=== PATIENT | female | born 1960 | race Caucasian/White ===

== ENCOUNTER → 2017-09-15 09:29 | Outpatient (CLI) | payer BC, SELFPAY ==
[2017-09-16 10:47] LABS: DHEA Sulfate 72.4 ug/dL (29.4-220.5)
== END ==
PROVIDERS: Visit Provider Obstetrics & Gynecology
DX: N95.1 Menopausal and female climacteric states (principal)
CPT/HCPCS: 36415; 82533; 82627; 82626

== ENCOUNTER → 2017-09-16 09:46 | Outpatient (CLI) | payer BC, SELFPAY ==
--- NOTE | 2017-09-16 09:52 | RAD_ITS ---
STUDY: X-RAY - ABDOMEN/PELVIS REASON FOR EXAM: Female, 57 years old. Right-sided abdominal pain TECHNIQUE: 2 views COMPARISON: None. FINDINGS: There is no bowel distention or free intraperitoneal peritoneal air. There is a moderate degree of fecal stasis. Clips in the right upper quadrant indicate prior cholecystectomy. There is a mild lumbar scoliosis with convexity to the left. No abnormal calcifications are seen over the expected locations of the kidneys. RAD/Abdomen Single View IMPRESSION: Mild fecal stasis. Nothing acute Electronically Signed: Matthew Bowman, at 10:25 EST Tel , Service support ,
== END ==
PROVIDERS: Family Provider Family Medicine; PCP Family Medicine; Visit Provider Physician Assistant Surgical
DX: R10.9 Unspecified abdominal pain (principal)
CPT/HCPCS: 74018

== ENCOUNTER 2017-09-17 11:21 | Emergency (ER) | payer BC, SELFPAY ==
[2017-09-17 11:22] VITALS: BP 108/77; PULSE 81; RESP 18; TEMP 36.6; O2SAT 100; BMI 24.8
--- NOTE | 2017-09-17 11:50 | CT_ITS ---
STUDY: CT ABDOMEN AND PELVIS WITHOUT CONTRAST REASON FOR EXAM: Female, 57 years old. Right upper quadrant pain RADIATION DOSAGE (If Supplied By Facility): CTDIvol = ( 7.65 ) mGy, DLP = ( 355.38 ) mGycm TECHNIQUE: Transaxial images were obtained from the dome of the diaphragm to the symphysis pubis without oral contrast, and without intravenous contrast. Sagittal and coronal images were reconstructed. Individualized dose optimization techniques were used for this CT. COMPARISON: None. FINDINGS: The lung bases are clear. The liver is normal with no dilated intrahepatic biliary radicles. Prior cholecystectomy.. The spleen, pancreas and both adrenals are normal. There is a tiny 2.7 mm nonobstructing right calyceal calculus. No hydronephrosis on either side. The stomach is normal. There is no bowel distention, acute appendicitis or diverticulitis. No abnormally constricting large bowel lesions. The abdominal wall is intact. There is no ascites, free intraperitoneal air or any evidence of epiploic appendagitis. The vascular structures in the retroperitoneum are normal Degenerative changes at L5-S1. There is no retrocrural, retroperitoneal or mesenteric adenopathy. There is no mesenteric mistiness The urinary bladder is normal.. The uterus is normal. There is no inguinal or pelvic adenopathy and there is no inguinal hernia.. CT/Abdomen/Pelvis without Cont IMPRESSION: A 3 mm nonobstructing right calyceal calculus. No hydronephrosis on either side No acute appendicitis or diverticulitis. Electronically Signed: Matthew Bowman, at 13:28 EST Tel , Service support ,
[2017-09-17 12:39] LABS: Bacteria 0 SEEN /hpf (None Seen); Mucous, Urine 0 SEEN /hpf (<or=2+); Red Blood Cells-Urine 0 SEEN /hpf (0-5); Squamous Epithelial Cells - UA 0 SEEN /hpf (5-10); White Blood Cells 0 SEEN /hpf (0-5)
[2017-09-17 12:44] LABS: Absolute Lymphocyte Count 1.39 X10^3/ul (0.83-4.51); Basophil# 0.04 X10^3/uL; Basophil% 0.5 % (0-1); Hematocrit 42.8 % (37-47); Hemoglobin 14.8 g/dl (12.0-15.0); Lymphocyte # 1.39 X10^3/ul (4.0); Lymphocyte % 18.6 % (19-41); Mean Corp Hgb Conc 34.6 g/gl (32-36); Mean Corpuscular Hgb 29.7 pg (27.0-32.0); Mean Corpuscular Volume 85.8 fL (81-99); Monocyte# 0.79 X10^3/uL; Monocyte% 10.5 % (0-10); Neutrophil # 4.95 X10^3/uL (2.7-7.7); Neutrophil % 66.1 % (47-70); POSITIVE COUNT NO; POSITIVE DIFFERENTIAL NO; POSITIVE MORPHOLOGY NO; Platelet Count 299 K/mm3 (150-450); RBC Distribution Width SD 39.8 fl (35.1-43.9); Red Blood Count 4.99 M/mm3 (4.2-5.4); White Blood Count 7.5 K/mm3 (4.4-11.0)
[2017-09-17 12:47] LABS: Color, Urine Yellow (Yellow); Glucose, Dipstick Normal (Normal); Ketone-Dipstick Negative (Negative); Leukocyte Esterase-Dipstick Negative /ul (Negative); Nitrite-Dipstick Negative (Negative); Occult Blood-Urine Negative /ul (Negative); Protein-Dipstick Negative (Negative); Urine Bilirubin Dipstick Negative (Negative); Urine Clarity Clear (Clear); Urine Urobilinogen Normal (Normal)
[2017-09-17 12:59] LABS: ALB/GLOB Ratio 0.9 RATIO (0.9-2.4); AST(SGOT) 13 U/L (15-37); Alanine Aminotransfer ALT/SGPT 33 U/L (13-56); Albumin, Serum 3.5 g/dL (3.2-5.0); Alkaline Phosphatase 88 U/L (45-117); Anion Gap 8 (5-15); BUN 14 mg/dL (7-18); BUN/Creat Ratio 22.4 RATIO (10-20); Calcium,Total 8.3 mg/dL (8.5-10.1); Chloride 107 mmol/L (98-107); Creatinine, Serum 0.63 mg/dL (0.55-1.02); EST Glomerular Filtration Rate 104 mL/min (>60); Est Glom Filt Rate - Afr Amer 126 mL/min (>60); Estimated Creatinine Clearance 100.58 ml/min; Globulin 3.7 g/dL (2.2-4.2); Glucose 94 mg/dL (74-106); Lipase 114 U/L (73-393); Protein, Total 7.2 g/dL (6.4-8.2); Sodium Level 142 mmol/L (136-145)
[2017-09-17 13:35] VITALS: BP 137/69; PULSE 71; RESP 16; O2SAT 96
--- NOTE | 2017-09-17 13:49 | ED.DCSUM_ITS ---
- ER Visit Summary Date of Service: 09/17/17 Chief Complaint: Abdominal pain History of Present Illness: The patient is a 57 F who presents with abdominal pain. It is been present for about 3 days. She initially attributed this to constipation. Her pain is worse in the right upper quadrant and is sharp and cramping. It is worse with movement palpation or bearing down. She took Dulcolax and had some hard stools and then did a fleets enema with positive results. She then went to the walk-in clinic yesterday and had an x-ray which she said showed significant constipation. She has 2 more enemas with relief. However she has ongoing right upper quadrant abdominal pain so presented here. No vomiting. No fevers. She has had a prior cholecystectomy no other abdominal surgeries. Physical Examination: Afebrile vitals are stable Moist mucous membranes Heart regular rate and rhythm Lungs are clear to auscultation Abdomen soft nontender to palpation nondistended Test Results: CBC CMP lipase urinalysis all normal. CT the abdomen shows no acute findings. Emergency Department Course and Treatment: Has benign physical examination and normal vital signs. She has normal laboratory studies and a normal CT. She does not appear to have any surgical or life-threatening process. She was advised to follow-up with her primary care physician. All questions answered bedside. Patient does have a history of irritable bowel syndrome and was advised to use her Bentyl at home. She was discharged. Treatment Plan: [] Disposition: Discharge Impression: Abdominal pain This note was generated with [employer] dictation software. It may contain incorrect words, spelling, and punctuation that were not noted in review of the chart prior to signing ED Disposition - Plan for ED Patient: Chief Complaint: Constipation Referrals: Noelle Sandoval MD [Primary Care Provider] -
--- NOTE | 2017-09-17 13:49 | DCINST.ED_ITS ---
ED Disposition - Plan for ED Patient: Chief Complaint: Constipation Instructions: ED Abdominal Pain Unkn Cause Referrals: Noelle aSndoval MD [Primary Care Provider] -
--- NOTE | 2017-09-17 13:49 | ED.DEP ---
ED Disposition - Plan for ED Patient: Chief Complaint: Constipation Instructions: ED Abdominal Pain Unkn Cause Referrals: Noelle Sandoval MD [Primary Care Provider] -
[2017-09-17 14:11] VITALS: BP 123/82; PULSE 74; RESP 18
== END 2017-09-17 14:13 | disposition home or self-care (01) ==
LOC: ED 13:24
PROVIDERS: Emergency Provider Emergency Medicine; Family Provider Family Medicine; PCP Family Medicine
DX: R10.11 Right upper quadrant pain (principal); K59.00 Constipation, unspecified; K58.9 Irritable bowel syndrome, unspecified; M79.7 Fibromyalgia; K21.9 Gastro-esophageal reflux disease without esophagitis; Z79.899 Other long term (current) drug therapy; Z90.49 Acquired absence of other specified parts of digestive tract
CPT/HCPCS: 74176; 80053; 81001; 83690; 85025; 99283; A4216

== ENCOUNTER → 2017-10-27 15:35 | Outpatient (CLI) | payer BC, SELFPAY ==
[2017-10-29 08:39] LABS: DHEA Sulfate 64.2 ug/dL (29.4-220.5)
== END ==
PROVIDERS: Family Provider Family Medicine; PCP Family Medicine; Visit Provider Family Medicine
DX: E04.1 Nontoxic single thyroid nodule (principal)
CPT/HCPCS: 36415; 82533; 82627; 82626

== ENCOUNTER → 2018-09-12 15:33 | Outpatient (CLI) | payer BC, SELFPAY ==
[2018-07-11 12:58] VITALS: BMI 25.0
== END ==
PROVIDERS: Family Provider Family Medicine; PCP Family Medicine; Referring Provider Otolaryngology Otolaryngology/Facial Plastic Surgery; Visit Provider Otolaryngology Otolaryngology/Facial Plastic Surgery
DX: J32.9 Chronic sinusitis, unspecified (principal); H66.91 Otitis media, unspecified, right ear
CPT/HCPCS: 87070; 87077; 87205

== ENCOUNTER → 2018-09-27 13:53 | Outpatient (CLI) | payer BC, SELFPAY ==
[2018-07-11 12:58] VITALS: BMI 25.0
[2018-10-02 08:19] LABS: HPV Reflexed? NOT INDICATED
== END ==
PROVIDERS: Family Provider Family Medicine; PCP Family Medicine; Visit Provider Obstetrics & Gynecology
DX: Z12.4 Encounter for screening for malignant neoplasm of cervix (principal)
CPT/HCPCS: 88175; G0145

== ENCOUNTER → 2018-10-11 08:56 | Outpatient (CLI) | payer BC, SELFPAY ==
[2018-07-11 12:58] VITALS: BMI 25.0
[2018-10-11 11:22] LABS: Progesterone Level 0.12 ng/mL (See Comment)
[2018-10-11 11:27] LABS: Estradiol < 11.0 pg/mL; Free T3 2.9 pg/mL (2.18-3.98); Hemoglobin A1c 5.8 % (4.2-6.3); T4 Free Direct 0.92 ng/dL (0.76-1.46); Thyroid Stim Hormone (TSH) 1.03 uIU/mL (0.358-3.74)
[2018-10-12 12:39] LABS: DHEA Sulfate 63.8 ug/dL (29.4-220.5)
== END ==
PROVIDERS: Visit Provider Obstetrics & Gynecology
DX: N95.1 Menopausal and female climacteric states (principal); R68.82 Decreased libido
CPT/HCPCS: 36415; 82533; 82627; 82670; 83036; 84144; 84403; 84439; 84443; 84481; 82626

== ENCOUNTER → 2018-11-01 15:20 | Outpatient (CLI) | payer BC, SELFPAY ==
[2018-07-11 12:58] VITALS: BMI 25.0
--- NOTE | 2018-11-01 15:21 | BI_ITS ---
MAMMOGRAPHY - BILATERAL SCREENING REASON FOR EXAM: Female, 58 years old. Routine annual screening examination. PERTINENT HISTORY: Non-contributory. Remote left stereotactic breast biopsy. TECHNIQUE: Digital bilateral breast deyanira (3D mammographic acquisition) in the CC and MLO projections. 2-D mediolateral oblique (MLO) and craniocaudad (CC) views of both breasts were obtained. CAD: Full Field Digital Mammography with Computer Added Detection was performed. COMPARISON: Comparison is made with prior study date August 11, 2017 and September 10, 2010. FINDINGS: Breast Composition: There are scattered areas of fibroglandular density. There are no dominant masses or suspicious calcifications. A tissue clip marker is seen in a small nodule in the upper deep midportion of the left breast. The nodule now measures 5.9 mm x 5.5 mm. No other significant abnormalities are identified. There has been no significant change since the prior study. BI/SCREENING MAMM (CAD), BILAT IMPRESSION: Stable bilateral screening mammogram. Yearly follow-up mammogram recommended. (A) ASSESSMENT CATEGORY: BIRADS Category 2: Benign. A letter regarding these results will be sent to the patient by the facility within 30 days. Approximately 10% of breast cancers are not detected by mammography. A normal mammogram should not delay biopsy of a clinically suspicious abnormality. [id number] Electronically Signed: Patrice Glass, at 8:34 EDT , Service support ,
== END ==
PROVIDERS: Family Provider Family Medicine; PCP Family Medicine; Referring Provider Obstetrics & Gynecology; Visit Provider Obstetrics & Gynecology
DX: Z12.31 Encounter for screening mammogram for malignant neoplasm of breast (principal)
CPT/HCPCS: 77063; 77067

== ENCOUNTER → 2019-04-12 15:50 | Outpatient (CLI) | payer BC, SELFPAY ==
[2018-07-11 12:58] VITALS: BMI 25.0
--- NOTE | 2019-04-12 15:54 | RAD_ITS ---
STUDY: X-RAY CHEST REASON FOR EXAM: Female, 59 years old. Cough for one week. TECHNIQUE: PICC line COMPARISON: None. FINDINGS: The lungs are clear and expanded. There is no demonstrated pleural abnormality. Normal size heart. Normal mediastinum and felix. Normal visualized pulmonary arteries. Normal visualized aortic arch and descending thoracic aorta. There are diffuse degenerative changes of the visualized thoracic spine. Normal visualized ribs, clavicles, and shoulders. There is no demonstrated abnormality of the visualized soft tissue structures of the upper abdomen. RAD/Chest PA and Lateral IMPRESSION: No acute cardiopulmonary disease. Electronically Signed: Luis Cummings DO at 18:37 EDT Tel [phone], Service support ,
== END ==
PROVIDERS: Family Provider Family Medicine; PCP Family Medicine; Referring Provider Family Medicine; Visit Provider Family Medicine
DX: R05 Cough (principal)
CPT/HCPCS: 71046

== ENCOUNTER → 2019-04-24 15:34 | Outpatient (CLI) | payer BC, SELFPAY ==
[2018-07-11 12:58] VITALS: BMI 25.0
== END ==
PROVIDERS: Family Provider Family Medicine; PCP Family Medicine; Referring Provider Otolaryngology; Visit Provider Otolaryngology
DX: J32.9 Chronic sinusitis, unspecified (principal)
CPT/HCPCS: 87070; 87205

== ENCOUNTER → 2021-01-01 15:03 | Outpatient (CLI) | payer BC, SELFPAY ==
[2019-09-05 08:43] VITALS: BMI 25.0
--- NOTE | 2021-01-01 15:04 | BI_ITS ---
MAMMOGRAPHY - BILATERAL SCREENING REASON FOR EXAM: Female, 60 years old. Routine annual screening examination. PERTINENT HISTORY: Non-contributory. Remote left stereotactic breast biopsy. TECHNIQUE: Digital bilateral breast josé manuel (3D mammographic acquisition) in the CC and MLO projections. 2-D mediolateral oblique (MLO) and craniocaudad (CC) views of both breasts were obtained. CAD: Full Field Digital Mammography with Computer Added Detection was performed. COMPARISON: Comparison is made with prior study dated 11/01/2018 and 08/11/2017. FINDINGS: Breast Composition: There are scattered areas of fibroglandular density. There are no dominant masses or suspicious calcifications. A tissue clip marker is once again seen in the small nodular density in the upper deep midportion of the left breast. This is unchanged. No other significant abnormalities are identified. There has been no significant change since the prior study. BI/SCRN MAMM (CAD)W/JOSÉ MANUEL BILAT IMPRESSION: Stable bilateral screening mammogram. Yearly follow-up mammogram recommended. (A) ASSESSMENT CATEGORY: BIRADS Category 2: Benign. A letter regarding these results will be sent to the patient by the facility within 30 days. Approximately 10% of breast cancers are not detected by mammography. A normal mammogram should not delay biopsy of a clinically suspicious abnormality. [id number] Electronically Signed: Patrice Glass MD at 8:25 EDT , Service support ,
== END ==
PROVIDERS: PCP Family Medicine; Referring Provider Family Medicine; Visit Provider Family Medicine
DX: Z00.00 Encounter for general adult medical examination without abnormal findings (principal); Z12.31 Encounter for screening mammogram for malignant neoplasm of breast
CPT/HCPCS: 77063; 77067

== ENCOUNTER → 2021-05-26 | Outpatient (CLI) | payer BC, SELFPAY | END | disposition home or self-care (01) | PROVIDERS: PCP Family Medicine; Referring Provider Family Medicine; Visit Provider Family Medicine | DX: J06.9 Acute upper respiratory infection, unspecified (principal) | CPT/HCPCS: 87635; U0005; U0003 ==

== ENCOUNTER 2021-08-13 10:08 | Outpatient (CLI) | payer BC, SELFPAY ==
[2021-08-13 12:39] LABS: Absolute Lymphocyte Count 1.77 X10^3/uL (0.83-4.51); Absolute Neutrophil Count 3.3 X10^3/uL (2.0-7.7); Basophil# 0.05 X10^3/uL; Basophil% 0.8 % (0-1); Eosinophil# 0.42 X10^3/uL; Eosinophils% 6.7 % (0-5); Hematocrit 44.1 % (37-47); Hemoglobin 14.2 g/dL (12.0-15.0); Lymphocyte # 1.77 X10^3/ul (0.83-4.51); Lymphocyte % 28.4 % (19-41); Mean Corp Hgb Conc 32.2 g/dL (32-36); Mean Corpuscular Hgb 28.3 pg (27.0-32.0); Mean Corpuscular Volume 87.8 fL (81-99); Mean Platelet Vol. 9.2 fl (6.2-12.0); Monocyte# 0.64 X10^3/uL; Monocyte% 10.3 % (0-10); NRBC Flagged by Analyzer 0 % (0-5); Neutrophil # 3.33 X10^3/uL (2.7-7.7); Neutrophil % 53.5 % (47-70); Platelet Count 332 K/mm3 (150-450); RBC Distribution Width CV 12.7 % (11.6-14.6); Red Blood Count 5.02 M/mm3 (4.2-5.4); White Blood Count 6.2 K/mm3 (4.4-11.0)
[2021-08-13 13:24] LABS: ALB/GLOB Ratio 1.1 RATIO (0.9-2.4); AST(SGOT) 19 U/L (15-37); Alanine Aminotransfer ALT/SGPT 50 U/L (13-56); Albumin, Serum 3.6 g/dL (3.2-5.0); Alkaline Phosphatase 85 U/L (45-117); Anion Gap 7 (5-15); BUN 14 mg/dL (7-18); BUN/Creat Ratio 23.1 RATIO (10-20); Calcium,Total 8.9 mg/dL (8.5-10.1); Chloride 109 mmol/L (98-107); EST Glomerular Filtration Rate 107 mL/min (>60); Est Glom Filt Rate - Afr Amer 130 mL/min (>60); Globulin 3.2 g/dL (2.2-4.2); Glucose 69 mg/dL (74-106); Potassium 4.4 mmol/L (3.5-5.1); Protein, Total 6.8 g/dL (6.4-8.2); Sodium Level 142 mmol/L (136-145)
== END 2021-08-13 23:59 | disposition short-term general hospital (02) ==
LOC: MFPLAB 10:11
PROVIDERS: PCP Family Medicine; Referring Provider Family Medicine; Visit Provider Family Medicine
DX: R53.83 Other fatigue (principal)
CPT/HCPCS: 36415; 80053; 85025

== ENCOUNTER 2021-10-20 18:02 | Outpatient (CLI) | payer BC, SELFPAY | END 2021-10-20 23:59 | disposition home or self-care (01) | PROVIDERS: PCP Family Medicine; Visit Provider Nurse Practitioner Family | DX: R30.0 Dysuria (principal) | CPT/HCPCS: 87086; 87088; 87186 ==

== ENCOUNTER 2021-11-10 15:41 | Outpatient (CLI) | payer BC, SELFPAY ==
[2021-11-10 17:44] LABS: Absolute Lymphocyte Count 2.07 X10^3/uL (0.83-4.51); Absolute Neutrophil Count 3.5 X10^3/uL (2.0-7.7); Basophil# 0.05 X10^3/uL; Basophil% 0.8 % (0-1); Eosinophil# 0.33 X10^3/uL; Hematocrit 43.9 % (37-47); Hemoglobin 14.3 g/dL (12.0-15.0); Lymphocyte # 2.07 X10^3/ul (0.83-4.51); Lymphocyte % 31.2 % (19-41); Mean Corp Hgb Conc 32.6 g/dL (32-36); Mean Corpuscular Hgb 28.7 pg (27.0-32.0); Mean Corpuscular Volume 88.2 fL (81-99); Mean Platelet Vol. 8.9 fl (6.2-12.0); Monocyte# 0.67 X10^3/uL; Monocyte% 10.1 % (0-10); NRBC Flagged by Analyzer 0 % (0-5); Neutrophil # 3.48 X10^3/uL (2.7-7.7); Neutrophil % 52.4 % (47-70); Platelet Count 359 K/mm3 (150-450); RBC Distribution Width CV 12.3 % (11.6-14.6); Red Blood Count 4.98 M/mm3 (4.2-5.4); White Blood Count 6.6 K/mm3 (4.4-11.0)
[2021-11-10 18:11] LABS: Erythrocyte Sedimentation Rate 8 mm/hr (0-30)
[2021-11-10 18:13] LABS: T4 Total, Thyroxin 7.9 ug/dL (4.8-13.9); Thyroid Stim Hormone (TSH) 1.08 uIU/mL (0.358-3.74)
== END 2021-11-10 23:59 | disposition home or self-care (01) ==
LOC: MFPLAB 15:42
PROVIDERS: PCP Family Medicine; Referring Provider Family Medicine; Visit Provider Family Medicine
DX: E03.9 Hypothyroidism, unspecified (principal); R55 Syncope and collapse
CPT/HCPCS: 36415; 84436; 84443; 85025; 85652

== ENCOUNTER → 2022-07-19 | Outpatient (CLI) | payer BC, SELFPAY ==
[2022-07-19 07:17] LABS: Absolute Lymphocyte Count 2.35 X10^3/uL (0.83-4.51); Absolute Neutrophil Count 3.3 X10^3/uL (2.0-7.7); Basophil# 0.06 X10^3/uL; Basophil% 0.9 % (0-1); Eosinophil# 0.58 X10^3/uL; Eosinophils% 8.4 % (0-5); Hematocrit 46.5 % (37-47); Lymphocyte # 2.35 X10^3/ul (0.83-4.51); Mean Corp Hgb Conc 32.3 g/dL (32-36); Mean Corpuscular Hgb 28.7 pg (27.0-32.0); Mean Corpuscular Volume 89.1 fL (81-99); Mean Platelet Vol. 8.8 fl (6.2-12.0); Monocyte# 0.64 X10^3/uL; Monocyte% 9.3 % (0-10); NRBC Flagged by Analyzer 0 % (0-5); Neutrophil # 3.25 X10^3/uL (2.7-7.7); Platelet Count 355 K/mm3 (150-450); RBC Distribution Width CV 12.5 % (11.6-14.6); Red Blood Count 5.22 M/mm3 (4.2-5.4); White Blood Count 6.9 K/mm3 (4.4-11.0)
[2022-07-19 07:48] LABS: ALB/GLOB Ratio 1.1 RATIO (0.9-2.4); AST(SGOT) 12 U/L (15-37); Alanine Aminotransfer ALT/SGPT 35 U/L (13-56); Albumin, Serum 3.9 g/dL (3.2-5.0); Alkaline Phosphatase 78 U/L (45-117); Anion Gap 3 (5-15); BUN 13 mg/dL (7-18); Calcium,Total 8.9 mg/dL (8.5-10.1); Chloride 109 mmol/L (98-107); Creatinine, Serum 0.69 mg/dL (0.55-1.02); EST Glomerular Filtration Rate 92 mL/min (>60); Est Glom Filt Rate - Afr Amer 112 mL/min (>60); Globulin 3.6 g/dL (2.2-4.2); Glucose 108 mg/dL (74-106); Protein, Total 7.5 g/dL (6.4-8.2); Sodium Level 142 mmol/L (136-145)
[2022-07-19 07:53] LABS: Cholesterol 221 mg/dL (200); High Density Lipoprotein 51 mg/dL; Triglycerides 114 mg/dL; Very Low Density Lipoprotein 23 mg/dL (5-40)
== END | disposition home or self-care (01) ==
LOC: LAB 06:43
PROVIDERS: PCP Family Medicine; Referring Provider Nurse Practitioner Family; Visit Provider Nurse Practitioner Family
DX: R53.83 Other fatigue (principal); Z13.220 Encounter for screening for lipoid disorders
CPT/HCPCS: 36415; 80053; 80061; 85025

== ENCOUNTER → 2022-08-09 | Outpatient (CLI) | payer BC, SELFPAY ==
[2022-08-09 19:24] LABS: Follicle Stimulating Hormone 64.4 mIU/mL; Free T3 2.9 pg/mL (2.18-3.98); Luteinizing Hormone 28.7 mIU/mL; Thyroid Stim Hormone (TSH) 1.19 uIU/mL (0.358-3.74)
== END | disposition home or self-care (01) ==
LOC: MFPLAB 15:37
PROVIDERS: PCP Family Medicine; Referring Provider Family Medicine; Visit Provider Family Medicine
DX: R55 Syncope and collapse (principal)
CPT/HCPCS: 36415; 83001; 83002; 84443; 84481

== ENCOUNTER → 2022-09-15 | Outpatient (CLI) | payer BC, SELFPAY ==
--- NOTE | 2022-09-15 | TOBX_PTH ---
PATIENT: DENIZ DUTTON LOC: [facility] U#:[id number] AGE/SX: 62/F ROOM: RE09/15/[address]: Dr. Og Morrison MD : 1960 BED: DIS: 09/15/2022 SPEC #: [id number] RECD: 09/16/22 08:10 STATUS: FREDI REJuan C #: [id number] MARLIN: 09/15/22 00:[address]: Og Morrison DEPT: SURGICAL PATHOLOGY RECD BY: Esperanza Tomlin ENTERED: 09/16/22 08:11 SP TYPE: TONGUE BX OTHR DR: Dr. Noelle Sandoval MD Tissues: Tongue, NOS Procedures: Surgery Specimen Level IV HEADER OPERATION: Not noted PRE-OP DIAGNOSIS: Tongue lesion TISSUE SUBMITTED: Tongue lesion MICROSCOPIC DIAGNOSIS Tongue lesion, biopsy: A piece of squamous mucosa with mild chronic inflammation. Negative for malignancy. SJ:ming 09/19/2022 COMMENT The epithelium is denuded in most of the specimen. Clinical correlation and appropriate follow up are necessary. Case has been reviewed in consultation with Dr. Duenas who concurs with the above diagnosis. IDC:AM MICROSCOPIC DESCRIPTION Slides are reviewed. GROSS DESCRIPTION Received in fixative is one container labeled with the patient's name and designated tongue biopsy. The specimen consists of a single irregular fragment of pink-gonzalez soft tissue measuring 0.7 x 0.3 x 0.1 cm. The specimen is totally submitted in one cassette. / AM:ming 09/16/2022 TC:3 CPT: 71102 ADDENDUM ADDENDUM ADDENDUM ADDENDUM ADDENDUM ADDENDUM ADDENDUM ADDENDUM ADDENDUM ADDENDUM 03/13/2023 09:54 ADDENDUM 03/13/2023 09:54 ADDENDUM 03/13/2023 09:54 ADDENDUM 03/13/2023 09:54 ADDENDUM 03/13/2023 09:54 This addendum is added to incorporate an outside pathology consultation report. The case was examined at [facility] (#[id number]) and the following diagnosis was rendered. Tongue lesion, biopsy: Low-grade keratinizing squamous dysplasia. Please see complete above mentioned consultation report in EMR
== END | disposition home or self-care (01) ==
LOC: LABSPEC 15:19
PROVIDERS: PCP Family Medicine; Referring Provider Otolaryngology; Visit Provider Otolaryngology
DX: K13.70 Unspecified lesions of oral mucosa (principal)
CPT/HCPCS: 88305

== ENCOUNTER → 2022-11-04 | Outpatient (CLI) | payer BC, SELFPAY ==
[2022-11-07 13:07] LABS: SJOGREN'S Anti-SS-A test < 0.2 AI (0.0-0.9)
[2022-11-08 11:13] LABS: SJOGREN'S Anti-SS-B test < 0.2 AI (0.0-0.9)
== END | disposition home or self-care (01) ==
LOC: LAB 14:20
PROVIDERS: PCP Family Medicine; Visit Provider Otolaryngology
DX: R68.2 Dry mouth, unspecified (principal)
CPT/HCPCS: 36415; 86235

== ENCOUNTER → 2022-12-21 | Outpatient (CLI) | payer BC, SELFPAY ==
--- NOTE | 2022-12-21 14:58 | CT_ITS ---
STUDY: CT SOFT TISSUE NECK WITH CONTRAST REASON FOR EXAM: Female, 62 years old. Swelling. RADIATION DOSAGE (If Supplied By Facility): CTDIvol = ( 17.66 ) mGy, DLP = ( 586.79 ) mGycm TECHNIQUE: The patient was scanned in a multi-detector CT scanner. High resolution transaxial imaging was performed following intravenous administration of IV 75mL Isovue-370. Sagittal and coronal images were reconstructed. Individualized dose optimization techniques were used for this CT. COMPARISON: CTA of the neck, March 23, 2016. FINDINGS: Normal bilateral parotid glands. Normal bilateral coke drawer spaces. Normal bilateral parapharyngeal spaces. Normal bilateral carotid spaces. Normal bilateral sublingual and submandibular glands and spaces. Normal visualized nasopharynx. Normal retropharyngeal space. Normal perivertebral space. Normal visualized bilateral faucial tonsils. The visualized tongue, tongue base and oropharynx are normal. The visualized cervical lymph nodes (levels I-) are within normal size limits, and maintain normal morphology. There is no demonstrated solid or cystic mass lesion. There is no abnormal contrast enhancement. Normal epiglottis, bilateral vallecula and hypopharynx. The pre-epiglottic and paraglottic adipose spaces are normal. Normal visualized bilateral piriform sinuses, aryepiglottic folds, vocal cords, and arytenoid-cricoid articulations. Normal subglottic trachea. Absent left thyroid. Question prior resection. There is a small hypodensity in the lower right thyroid. Normal visualized pulmonary apices. Opacification of left maxillary sinus. Degenerative changes cervical spine. There is anterior fusion of C3-C5. CT/Soft Tissue Neck WITH Contrast IMPRESSION: 1. No visualized soft tissue swelling or mass. 2. Status post left thyroidectomy. 3. Anterior fusion of the upper cervical spine. 4. Opacification of the right maxillary sinus. Question chronic sinus disease. Electronically Signed: Luis Cummings DO at 23:16 EDT ,
[2022-12-21 15:15] LABS: CREATININE FINGERSTICK < 0.9 mg/dL (0.55-1.02); EGFR FINGERSTICK > 60.0000 mL/min (>60)
== END | disposition home or self-care (01) ==
LOC: CT 14:47
PROVIDERS: PCP Family Medicine; Referring Provider Otolaryngology; Visit Provider Otolaryngology
DX: K11.23 Chronic sialoadenitis (principal); D10.1 Benign neoplasm of tongue
CPT/HCPCS: 70491; Q9967

== ENCOUNTER → 2022-12-25 | Outpatient (CLI) | payer BC, SELFPAY ==
[2022-12-26 10:05] LABS: Mucous, Urine 0 SEEN /hpf (<or=2+); Squamous Epithelial Cells - UA 0 SEEN /hpf (5-10)
[2022-12-26 10:15] LABS: Color, Urine Yellow (Yellow); Glucose, Dipstick Normal (Normal); Ketone-Dipstick 5 mg/dl (Negative); Leukocyte Esterase-Dipstick 500 /ul (Negative); Nitrite-Dipstick Negative (Negative); Occult Blood-Urine 50 /ul (Negative); Protein-Dipstick 30 mg/dl (Negative); Specific Gravity, Urine 1.025 (1.002-1.030); Urine Bilirubin Dipstick Negative (Negative); Urine Clarity Clear (Clear); Urine Urobilinogen Normal (Normal)
[2022-12-26 10:57] LABS: Calcium Oxalate Crystals Ur RARE /hpf (<or=2+); Red Blood Cells-Urine 0-5 SEEN /hpf (0-5); White Blood Cells 50-100 SEEN /hpf (0-5)
[2022-12-26 10:58] LABS: Bacteria RARE /hpf (None Seen)
== END | disposition home or self-care (01) ==
PROVIDERS: PCP Family Medicine; Visit Provider Nurse Practitioner Family
DX: R30.9 Painful micturition, unspecified (principal)
CPT/HCPCS: 81001; 87086; 87088

== ENCOUNTER → 2023-03-22 | Outpatient (CLI) | payer BC, SELFPAY ==
--- NOTE | 2023-03-22 16:22 | RAD_ITS ---
INDICATION: PRE-OP EXAMINATION/TECHNIQUE: X-RAY - XR Chest 2 Views COMPARISON: 04/12/2019 FINDINGS: LINES/DEVICES: None. LUNGS: No consolidation, edema or effusion. No pneumothorax. MEDIASTINUM AND CARDIOVASCULAR STRUCTURES: Cardiac silhouette not enlarged. Central airways and mediastinal contour are unremarkable. BONES AND SOFT TISSUES: Unremarkable. RAD/Chest PA and Lateral IMPRESSION: No radiographic evidence of acute cardiopulmonary disease. Electronically Signed: Willie Blankenship MD at 23:32 EDT ,
[2023-03-22 17:47] LABS: Absolute Neutrophil Count 3.2 X10^3/uL (2.0-7.7); Basophil# 0.06 X10^3/uL; Basophil% 0.8 % (0-1); Eosinophil# 0.43 X10^3/uL; Hemoglobin 14.6 g/dL (12.0-15.0); Lymphocyte % 37.7 % (19-41); Mean Corp Hgb Conc 31.7 g/dL (32-36); Mean Corpuscular Hgb 28.5 pg (27.0-32.0); Mean Corpuscular Volume 89.8 fL (81-99); Mean Platelet Vol. 8.9 fl (6.2-12.0); Monocyte# 0.72 X10^3/uL; NRBC Flagged by Analyzer 0 % (0-5); Neutrophil # 3.23 X10^3/uL (2.7-7.7); Neutrophil % 45.1 % (47-70); Platelet Count 368 K/mm3 (150-450); RBC Distribution Width CV 12.5 % (11.6-14.6); RBC Distribution Width SD 41.2 fl (35.1-43.9); Red Blood Count 5.12 M/mm3 (4.2-5.4); White Blood Count 7.2 K/mm3 (4.4-11.0)
[2023-03-22 18:01] LABS: AST(SGOT) 15 U/L (15-37); Alanine Aminotransfer ALT/SGPT 46 U/L (13-56); Albumin, Serum 3.8 g/dL (3.2-5.0); Alkaline Phosphatase 100 U/L (45-117); Anion Gap 6 (5-15); BUN 17 mg/dL (7-18); BUN/Creat Ratio 23.6 RATIO (10-20); Calcium,Total 8.8 mg/dL (8.5-10.1); Chloride 106 mmol/L (98-107); Creatinine, Serum 0.72 mg/dL (0.55-1.02); EST Glomerular Filtration Rate 87 mL/min (>60); Est Glom Filt Rate - Afr Amer 105 mL/min (>60); Globulin 3.8 g/dL (2.2-4.2); Glucose 110 mg/dL (74-106); Protein, Total 7.6 g/dL (6.4-8.2); Sodium Level 137 mmol/L (136-145); Troponin-I HS 4 pg/mL (3.0-54.0)
== END | disposition home or self-care (01) ==
PROVIDERS: PCP Family Medicine; Referring Provider Family Medicine; Visit Provider Family Medicine
DX: Z01.818 Encounter for other preprocedural examination (principal); R94.31 Abnormal electrocardiogram [ECG] [EKG]
CPT/HCPCS: 36415; 71046; 80053; 84484; 85025

== ENCOUNTER 2023-04-02 11:47 | Emergency (ER) | payer BC, SELFPAY ==
[2023-04-02 11:48] VITALS: BP 102/87; PULSE 103; RESP 17; TEMP 36.4; O2SAT 96; BMI 26.7
--- NOTE | 2023-04-02 12:06 | CT_ITS ---
We are attempting to reach an attending provider to discuss findings. An addendum with communication details will be sent when the communication is complete. INDICATION: Swelling, trismus EXAMINATION: CT NECK WITH CONTRAST - CT Soft Tissue Neck W/ Contrast Injection TECHNIQUE: Helically acquired images were obtained of the neck following IV contrast. RADIATION DOSAGE (If Supplied By Facility): CTDIvol = ( 17.05 ) mGy, DLP = ( 536.77 ) mGycm IV Contrast dosage and agent: 75 mL of Isovue-370. COMPARISON: CT neck with contrast 12/21/2022. FINDINGS: NASOPHARYNX: Unremarkable. SUPRAHYOID NECK: Unremarkable oropharynx, oral cavity, parapharyngeal space, and retropharyngeal space. INFRAHYOID NECK: Abnormal edema in the posterior aspect of the right false vocal cord extending laterally to wrap around the right thyroid lamina. This also extends into the preepiglottic space. This is causing narrowing of the laryngopharyngeal airway. Normal arytenoid cartilages and cricoid cartilage. No suspicious abnormality of the vocal cords. 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 Small hypodense nodules and/or cysts in the right thyroid lobe. SALIVARY GLANDS: Radiopaque catheter in the right submandibular duct with abnormal dilatation in the posterior aspect of the right submandibular duct extending to the hilum of the right submandibular gland. Radiopaque catheter inside the left subareolar duct but no obstructive dilatation of the left submandibular duct in the left submandibular gland. Normal and symmetrical parotid glands. LYMPH NODES: No cervical or supraclavicular lymphadenopathy. VASCULAR STRUCTURES: Unremarkable. VISUALIZED PORTIONS OF THE ORBITS, PARANASAL SINUSES, MASTOID AIR CELLS AND SKULL BASE: Complete opacification of the left maxillary sinus with old fracture deformity in addition to presence of mini plates and transfixing 6 screws in the anterior jones of both maxilla. Normal remaining paranasal sinuses. Normal orbits, mastoid air cells and skull base. BONES: Metallic plate with transfixing screws across from previous anterior fusion of C3, C4 and C5. Minimal degenerative anterolisthesis of C5 on C6. Pronounced C6-C7 disc space height narrowing with mild endplate sclerosis. THORACIC INLET: Clear lung apices. CT/Soft Tissue Neck WITH Contrast IMPRESSION: 1. Radiopaque drain catheter inside the right submandibular duct with obstructive dilatation in the posterior right subareolar duct extending to the hilum of the right submandibular gland. This is causing edema around the right submandibular gland consistent with sialoadenitis. This abnormal edema extends caudally into the right paralaryngeal space and the right false vocal cord. These are new findings. 2. Radiopaque drain catheter in the left submandibular duct without submandibular duct obstruction and normal left submandibular gland. This is a new finding. 3. Small hypodense nodules in the right thyroid lobe were present previously. 4. No other additional findings and changes. Electronically Signed: Quan Garzon MD at 13:33 EDT ,
[2023-04-02 12:07] VITALS: O2SAT 96
--- NOTE | 2023-04-02 12:08 | EX.ED.DYSGE1 ---
HPI History of Present Illness Chief Complaint: Shortness of Breath Narrative Narrative: 63-year-old female past medical history of recent stenting of her submandibular gland on the right at [facility] 2 days ago presents with her daughter because of increased swelling and difficulty swallowing that she has had over the last 24 hours. She is having difficulty speaking and opening her mouth. Her daughter states that she had the procedure done on Monday, 2 days ago, spent the night and came home from the hospital yesterday. She was told by the surgeon that she should be able to eat anything. She was placed on Vicodin and Augmentin, but is having difficulty swallowing pills. She has always had problems with overproduction of mucus, but is unable to swallow any Mucinex. They called her surgeon at [facility] and were told to report to the emergency department because of difficulty opening her mouth, as she can only open it up to an inch, and she has increased swelling of her right submandibular gland and neck. She denies any fevers or chills. No other symptoms. [facility] Medical History Arthritis Difficulty balancing history of neck fusion NECK AND BACK PAIN UNEXPLANINED BRUISES Home Medications cyclobenzaprine 10 mg tablet 10 mg PO TID PRN Pain 05/26/13 [History Last Taken 05/26/13 0700] multivitamin with folic acid 400 mcg tablet 1 tab PO DAILY 06/03/13 [History Last Taken Unknown] lactobacillus combination no.8 3 billion cell capsule (Adult Probiotic) 3,000 mmu cells PO DAILY 09/05/19 [History Last Taken Unknown] phenazopyridine 100 mg tablet (Pyridium) 100 mg PO TID PRN pain #14 tabs 12/25/22 [Rx Last Taken Unknown] Allergy/AdvReac Type Severity Reaction Status Date / Time benzocaine Allergy Unknown Verified 04/02/23 12:07 paroxetine HCl [From Paxil] Allergy Unknown Verified 04/02/23 12:07 TOPICAL JAIMIE Allergy Rash Uncoded 01/17/23 13:17 Surgical History History of carpal tunnel surgery History of cholecystectomy History of shoulder surgery Social History Smoking Status: Never smoker alcohol intake: current alcohol intake frequency: holidays/special occasions only ROS ROS ED ROS Narrative Constitutional: No fever, no chills. HEENT: No sore throat. No neck pain. No loss of vision. No rhinorrhea. Swelling of right cheek and neck. Difficulty swallowing. Positive trismus. Cardiovascular: No chest pain. No palpitations. No pedal edema. Mucous congestion. Respiratory: No cough, no shortness of breath. Abdominal: No abdominal pain. No nausea. No vomiting. Genitourinary: No dysuria. No hematuria. Musculoskeletal: No myalgias. No arthralgias. Neurologic: No headaches. No dizziness. No lightheadedness. Skin: No rash. No change in color. Psychiatric: No depression. No anxiety. EXAM Physical Exam Narrative Exam Narrative: Afebrile. Vital signs noted. HEENT: Normocephalic. Atraumatic. PERRL, EOMI. Neck soft and supple. No point tenderness or step off. Positive trismus. Difficulty opening mouth. Positive swelling and tenderness with erythema right submandibular gland extending to skin on anterior portion of neck and chest. Cardiovascular: Regular rate and rhythm. No murmurs, rubs, or gallops appreciated. Respiratory: No tachypnea. Lungs clear to auscultation bilaterally. Gastrointestinal: Abdomen soft, nontender, with normoactive bowel sounds. No rebound or guarding. Neurological: Awake. Alert. Nonfocal, nonlateralizing. Skin: No rash. Normal color. No pallor. Musculoskeletal: No pedal edema. Full range of motion extremities. Const Vital Signs: 04/02/23 11:48 04/02/23 12:07 04/02/23 12:54 Temperature 97.5 F L Temperature Source Temporal Pulse Rate 103 H 100 Respiratory Rate 17 18 Respiratory Effort Normal Non-Labored Respiratory Depth Normal Respiratory Pattern Normal Blood Pressure 102/87 H 151/76 H Blood Pressure Mean 92 101 Pulse Ox 96 94 Oxygen Delivery Method Room Air Room Air Room Air 04/02/23 14:09 Temperature Temperature Source Pulse Rate 92 Respiratory Rate 18 Respiratory Effort Respiratory Depth Respiratory Pattern Blood Pressure 152/84 H Blood Pressure Mean 106 Pulse Ox 97 Oxygen Delivery Method Room Air MDM MDM MDM Narrative Medical decision making narrative: In the differential diagnosis is postoperative swelling versus abscess development. Her pulse ox is 96% on room air. As she is tachycardic, I will obtain a CBC and lactate. She is having difficulty swallowing her pain pills, and requested something for swelling. Initially she will be given Toradol. I do feel that CT imaging is indicated. Currently, there are no signs of airway compromise. In discussion with the patient, she states that she does have an ENT here, who referred her to Dr. Kahlil Cheng at [facility]. She states that the stents were placed and are submandibular glands because she was not producing any saliva and that they were dried up. I reviewed her laboratory work from today and she has elevated white count of 12.7, hemoglobin normal at 14.7, hematocrit 44.8, platelet count 318. BMP is grossly unremarkable except for creatinine of 0.54, slightly low. Chloride is also elevated at 108 which I think is nonspecific. No evidence of dehydration. She was bolused normal saline 1 L intravenously. After Toradol she thinks that she can open her mouth slightly. I received a call from the radiologist regarding the CT of the soft tissue neck. He notes that there are new stents placed from CT in December, but the right stent is blocked causing dilation of the submandibular gland and swelling. Repeat examination does show that the patient is feeling slightly improved. As she was supposed to be on Augmentin with any concern for infection with elevated white count, she was given 1 g of Rocephin intravenously. I discussed the patient with the [facility] transfer line for transfer back to their facility. She has been accepted as an ED to ED transfer to be seen by otolaryngology on arrival. I do feel that she can be transferred by private vehicle and that her IV can be left in place. They were told to report directly to the [facility] ED for further evaluation and treatment. Patient is in stable condition. Disposition is transferred. History & Record Review Discussion w/independent historian: Patient and Family Lab Data Attestation: I reviewed the patient's lab results. Labs: Laboratory Results - last 24 hr 04/02/23 12:26 WBC 12.7 H RBC 5.05 Hgb 14.7 Hct 44.8 MCV 88.7 MCH 29.1 MCHC 32.8 RDW Std Deviation 41.4 RDW Coeff of Daina 12.7 Plt Count 318 MPV 8.6 Immature Gran % (Auto) 0.300 Neut % (Auto) 80.2 H Lymph % (Auto) 10.8 L [place] % (Auto) 8.2 Eos % (Auto) 0.3 Baso % (Auto) 0.2 Absolute Neuts (auto) 10.2 H Absolute Lymphs (auto) 1.38 Nucleated RBC % 0 Sodium 139 Potassium 3.6 Chloride 108 H Carbon Dioxide 25.0 Anion Gap 6 BUN 7 Creatinine 0.54 L Estim Creat Clear Calc 108.97 Est GFR (MDRD) Af Amer 148 Est GFR (MDRD) Non-Af 123 BUN/Creatinine Ratio 13.1 Glucose 113 H Lactic Acid 0.8 Calcium 8.6 Total Bilirubin 0.50 AST 38 H ALT 85 H Alkaline Phosphatase 106 Total Protein 7.1 Albumin 3.7 Globulin 3.4 Albumin/Globulin Ratio 1.1 Radiography Diagnostic Testing: Clinical Impression(s) from Imaging Studies Soft Tissue Neck CT 04/02/23 12:06 IMPRESSION: 1. Radiopaque drain catheter inside the right submandibular duct with obstructive dilatation in the posterior right subareolar duct extending to the hilum of the right submandibular gland. This is causing edema around the right submandibular gland consistent with sialoadenitis. This abnormal edema extends caudally into the right paralaryngeal space and the right false vocal cord. These are new findings. 2. Radiopaque drain catheter in the left submandibular duct without submandibular duct obstruction and normal left submandibular gland. This is a new finding. 3. Small hypodense nodules in the right thyroid lobe were present previously. 4. No other additional findings and changes. Electronically Signed: Quan Garzon MD at 13:33 EDT Reading Location ID and State: [facility] / [place] , Service support , ADDENDUM: 04/02/23 1440 IMPRESSION: 1. Radiopaque drain catheter inside the right submandibular duct with obstructive dilatation in the posterior right subareolar duct extending to the hilum of the right submandibular gland. This is causing edema around the right submandibular gland consistent with sialoadenitis. This abnormal edema extends caudally into the right paralaryngeal space and the right false vocal cord. These are new findings. 2. Radiopaque drain catheter in the left submandibular duct without submandibular duct obstruction and normal left submandibular gland. This is a new finding. 3. Small hypodense nodules in the right thyroid lobe were present previously. 4. No other additional findings and changes. N.B. : The above Results were Read Back by Quan Garzon MD to Mele Glass MD, and understanding confirmed on 04/02/2023 13:38:09 (ET). Electronically Signed: Quan Garzon MD at 13:33 EDT , Discharge Plan Triage Chief Complaint: Shortness of Breath ED Provider: Quan Shabazz Dx/Rx/DC Orders Clinical Impression: Submandibular gland swelling, Post-operative pain, Sialoadenitis of submandibular gland, Trismus Prescriptions: No Action Adult Probiotic 3 billion cell capsule 3,000 mmu cells PO DAILY Rx Instructions: administer with a meal phenazopyridine [Pyridium] 100 mg tablet 100 mg PO TID PRN (Reason: pain) Qty: 14 0RF cyclobenzaprine 10 MG tablet 10 mg PO TID PRN (Reason: Pain) Patient Comments: MUSCLE RELAXER multivitamin with folic acid 1 TABLET tablet 1 tab PO DAILY Patient Comments: MULTIVITAMIN Primary Care Provider: Noelle Sandoval Referrals: Noelle Sandoval MD [Primary Care Provider] - Disposition Disposition: Acute Care Hospital Discharge Location: [facility]
[2023-04-02] MEDS: 0.9% Normal Saline 1,000 ML 999 ML IV (12:30)
[2023-04-02] MEDS: Ketorolac 15 MG/ML Vial IV (12:30)
[2023-04-02 12:42] LABS: Absolute Lymphocyte Count 1.38 X10^3/uL (0.83-4.51); Absolute Neutrophil Count 10.2 X10^3/uL (2.0-7.7); Basophil# 0.03 X10^3/uL; Basophil% 0.2 % (0-1); Eosinophil# 0.04 X10^3/uL; Eosinophils% 0.3 % (0-5); Hematocrit 44.8 % (37-47); Hemoglobin 14.7 g/dL (12.0-15.0); Lymphocyte # 1.38 X10^3/ul (0.83-4.51); Lymphocyte % 10.8 % (19-41); Mean Corp Hgb Conc 32.8 g/dL (32-36); Mean Corpuscular Hgb 29.1 pg (27.0-32.0); Mean Corpuscular Volume 88.7 fL (81-99); Mean Platelet Vol. 8.6 fl (6.2-12.0); Monocyte# 1.04 X10^3/uL; Monocyte% 8.2 % (0-10); NRBC Flagged by Analyzer 0 % (0-5); Neutrophil % 80.2 % (47-70); Platelet Count 318 K/mm3 (150-450); RBC Distribution Width CV 12.7 % (11.6-14.6); RBC Distribution Width SD 41.4 fl (35.1-43.9); Red Blood Count 5.05 M/mm3 (4.2-5.4); White Blood Count 12.7 K/mm3 (4.4-11.0)
[2023-04-02 12:52] LABS: ALB/GLOB Ratio 1.1 RATIO (0.9-2.4); AST(SGOT) 38 U/L (15-37); Alanine Aminotransfer ALT/SGPT 85 U/L (13-56); Albumin, Serum 3.7 g/dL (3.2-5.0); Alkaline Phosphatase 106 U/L (45-117); Anion Gap 6 (5-15); BUN 7 mg/dL (7-18); BUN/Creat Ratio 13.1 RATIO (10-20); Calcium,Total 8.6 mg/dL (8.5-10.1); Chloride 108 mmol/L (98-107); Creatinine, Serum 0.54 mg/dL (0.55-1.02); EST Glomerular Filtration Rate 123 mL/min (>60); Est Glom Filt Rate - Afr Amer 148 mL/min (>60); Estimated Creatinine Clearance 108.97 ml/min; Globulin 3.4 g/dL (2.2-4.2); Glucose 113 mg/dL (74-106); Potassium 3.6 mmol/L (3.5-5.1); Protein, Total 7.1 g/dL (6.4-8.2); Sodium Level 139 mmol/L (136-145)
[2023-04-02 12:54] VITALS: BP 151/76; PULSE 100; RESP 18; O2SAT 94
[2023-04-02 13:03] LABS: Lactic Acid 0.8 mmol/L (0.4-1.9)
[2023-04-02] MEDS: Ceftriaxone 1 GM/50 ML BAG IV (14:07)
[2023-04-02 14:09] VITALS: BP 152/84; PULSE 92; RESP 18; O2SAT 97
--- NOTE | 2023-04-02 15:04 | ED.RN ---
PER DR. GONZALEZ, PT OKAY TO DRIVE TO [facility] WITH DAUGHTER. OKAY TO LEAVE IV IN FOR TRANSPORT BY PRIVATE VEHICLE.
--- NOTE | 2023-04-02 15:17 | ED.RN ---
THIS RN ATTEMPTED TO CALL REPORT TO [facility] ER. PER TRANSFER NURSE THAT ANSWERED PHONE, KELSIE WHTIEHEAD. WILL BE TAKING THE PT. PER KELSIE WHITEHEAD., REPORT NOT NEEDED. RECEIVED ALL NECESSARY INFORMATION FROM ER DOCTOR WITH [facility].
[2023-04-02 15:21] VITALS: BP 141/75; PULSE 86; RESP 18; O2SAT 99
--- NOTE | 2023-04-02 15:23 | ED.RN ---
PT AMBULATES OUT OF ER AT 1524.
== END 2023-04-02 15:24 | disposition short-term general hospital (02) ==
PROVIDERS: Emergency Provider Emergency Medicine; PCP Family Medicine; Visit Provider Emergency Medicine
DX: K11.20 Sialoadenitis, unspecified (principal); G89.18 Other acute postprocedural pain; R47.9 Unspecified speech disturbances; R13.10 Dysphagia, unspecified; R25.2 Cramp and spasm
CPT/HCPCS: 70491; 80053; 83605; 85025; 96361; 96365; 96375; 99284; J7030; Q9967; A4216

== ENCOUNTER → 2023-06-12 | Outpatient (CLI) | payer BC, SELFPAY ==
[2023-06-12 09:01] LABS: Mucous, Urine 0 SEEN /hpf (<or=2+); Squamous Epithelial Cells - UA 0 SEEN /hpf (5-10)
[2023-06-12 10:16] LABS: Color, Urine Yellow (Yellow); Glucose, Dipstick Normal (Normal); Ketone-Dipstick Negative (Negative); Leukocyte Esterase-Dipstick 500 /ul (Negative); Nitrite-Dipstick Negative (Negative); Occult Blood-Urine 50 /ul (Negative); Protein-Dipstick Negative (Negative); Specific Gravity, Urine 1.015 (1.002-1.030); Urine Bilirubin Dipstick Negative (Negative); Urine Clarity Sl. Cloudy (Clear); Urine Urobilinogen Normal (Normal); Urine pH 6.5 (5.0 - 8.0)
[2023-06-12 10:44] LABS: Red Blood Cells-Urine 0-5 SEEN /hpf (0-5); White Blood Cells 10-25 SEEN /hpf (0-5)
[2023-06-12 10:45] LABS: Bacteria 1+ /hpf (None Seen); Calcium Oxalate Crystals Ur 2+ /hpf (<or=2+)
== END | disposition home or self-care (01) ==
PROVIDERS: PCP Family Medicine; Visit Provider Physician Assistant
DX: R30.0 Dysuria (principal)
CPT/HCPCS: 81001; 87086; 87088

== ENCOUNTER → 2023-07-10 | Outpatient (CLI) | payer BC, SELFPAY ==
[2023-07-10 14:15] LABS: Bacteria 0 SEEN /hpf (None Seen); Mucous, Urine 0 SEEN /hpf (<or=2+); Red Blood Cells-Urine 0 SEEN /hpf (0-5); Squamous Epithelial Cells - UA 0 SEEN /hpf (5-10); White Blood Cells 0 SEEN /hpf (0-5)
[2023-07-10 15:33] LABS: Color, Urine Yellow (Yellow); Glucose, Dipstick Normal (Normal); Ketone-Dipstick Negative (Negative); Leukocyte Esterase-Dipstick Negative /ul (Negative); Nitrite-Dipstick Negative (Negative); Occult Blood-Urine Negative /ul (Negative); Protein-Dipstick Negative (Negative); Urine Bilirubin Dipstick Negative (Negative); Urine Clarity Sl. Cloudy (Clear); Urine Urobilinogen Normal (Normal)
[2023-07-10 15:52] LABS: Absolute Lymphocyte Count 1.59 X10^3/uL (0.83-4.51); Absolute Neutrophil Count 4.1 X10^3/uL (2.0-7.7); Basophil# 0.08 X10^3/uL; Basophil% 1.2 % (0-1); Eosinophil# 0.45 X10^3/uL; Eosinophils% 6.6 % (0-5); Hematocrit 43.6 % (37-47); Hemoglobin 13.9 g/dL (12.0-15.0); Lymphocyte # 1.59 X10^3/ul (0.83-4.51); Lymphocyte % 23.2 % (19-41); Mean Corp Hgb Conc 31.9 g/dL (32-36); Mean Corpuscular Hgb 28.8 pg (27.0-32.0); Mean Corpuscular Volume 90.3 fL (81-99); Mean Platelet Vol. 8.7 fl (6.2-12.0); Monocyte# 0.62 X10^3/uL; Monocyte% 9.1 % (0-10); NRBC Flagged by Analyzer 0 % (0-5); Neutrophil # 4.07 X10^3/uL (2.7-7.7); Neutrophil % 59.5 % (47-70); Platelet Count 364 K/mm3 (150-450); RBC Distribution Width CV 12.6 % (11.6-14.6); RBC Distribution Width SD 41.4 fl (35.1-43.9); Red Blood Count 4.83 M/mm3 (4.2-5.4); White Blood Count 6.8 K/mm3 (4.4-11.0)
[2023-07-10 16:10] LABS: Erythrocyte Sedimentation Rate 17 mm/hr (0-30)
[2023-07-10 16:37] LABS: ALB/GLOB Ratio 0.9 RATIO (0.9-2.4); AST(SGOT) 10 U/L (15-37); Alanine Aminotransfer ALT/SGPT 29 U/L (13-56); Albumin, Serum 3.3 g/dL (3.2-5.0); Alkaline Phosphatase 85 U/L (45-117); Anion Gap 7 (5-15); BUN 15 mg/dL (7-18); BUN/Creat Ratio 26.2 RATIO (10-20); Calcium,Total 8.4 mg/dL (8.5-10.1); Chloride 107 mmol/L (98-107); Creatinine, Serum 0.57 mg/dL (0.55-1.02); EST Glomerular Filtration Rate 113 mL/min (>60); Est Glom Filt Rate - Afr Amer 137 mL/min (>60); Free T3 3.2 pg/mL (2.18-3.98); Globulin 3.7 g/dL (2.2-4.2); Glucose 97 mg/dL (74-106); Potassium 3.6 mmol/L (3.5-5.1); Sodium Level 139 mmol/L (136-145); T4 Free Direct 0.96 ng/dL (0.76-1.46); Thyroid Stim Hormone (TSH) 0.65 uIU/mL (0.358-3.74)
[2023-07-10 16:46] LABS: Hepatitis B Surface Antibody Reactive; Hepatitis C Antibody Non-Reactive (Nonreactive)
[2023-07-12 15:08] LABS: Hepatitis A AB, Total Negative (Negative); PROEL- A/G Ratio 1.3 (0.7-1.7); PROEL- Albumin 3.5 g/dL (2.9-4.4); PROEL- Alpha-1 Globulin 0.3 g/dL (0.0-0.4); PROEL- Alpha-2 Globulin 0.9 g/dL (0.4-1.0); PROEL- Gamma Globulin 0.7 g/dL (0.4-1.8); PROEL- Globulin, Total 2.8 g/dL (2.2-3.9); PROEL- TOTAL PROTEIN 6.3 g/dL (6.0-8.5); PROEL-M-Spike Not Observed g/dL (Not Observed); Thyroid Peroxidase AB 11 IU/mL (0-34)
[2023-07-13 13:07] LABS: Anti-Nuclear Antibody Test Negative (.); Anti-dsDNA Ab <1 IU/mL (0-9)
== END | disposition home or self-care (01) ==
LOC: MTLAB 14:09
PROVIDERS: PCP Family Medicine; Referring Provider Physician Assistant Medical; Visit Provider Physician Assistant Medical
DX: M31.0 Hypersensitivity angiitis (principal)
CPT/HCPCS: 36415; 80053; 81001; 84165; 84439; 84443; 84481; 85025; 85652; 86038; 86225; 86376; 86706; 86708; 86803

== ENCOUNTER → 2023-07-28 | Outpatient (CLI) | payer BC, SELFPAY ==
--- NOTE | 2023-07-28 10:57 | BI_ITS ---
MAMMOGRAPHY - BILATERAL SCREENING 3-D TOMOSYNTHESIS REASON FOR EXAM: Female, 63 years old. Routine screening PERTINENT HISTORY: No significant family history. TECHNIQUE: 2-D mammograms and 3-D Tomosynthesis of the breast (s) were performed. CAD was performed. COMPARISON: 01/01/2021 FINDINGS: The breast composition is composed of scattered fibroglandular density. Scattered benign calcifications are seen. No dense spiculated masses or suspicious microcalcifications are identified. No architectural distortion is identified. There is no skin thickening or retraction. There has been no significant change since the prior study. BI/SCRN MAMM (CAD)W/JOSÉ MANUEL BILAT IMPRESSION: No mammographic signs of malignancy. Routine yearly mammograms recommended. ASSESSMENT CATEGORY: BIRADS Category 1: Negative. A letter regarding these results will be sent to the patient by the facility within 30 days. FOLLOW UP RECOMMENDATION: Yearly follow up mammogram recommended. (A) Approximately 10% of breast cancers are not detected by mammography. A normal mammogram should not delay biopsy of a clinically suspicious abnormality. Electronically Signed: Jun Man MD at 12:03 EST ,
== END | disposition home or self-care (01) ==
LOC: OPBI 10:57
PROVIDERS: PCP Family Medicine; Referring Provider Family Medicine; Visit Provider Family Medicine
DX: Z12.31 Encounter for screening mammogram for malignant neoplasm of breast (principal)
CPT/HCPCS: 77063; 77067

== ENCOUNTER → 2023-08-10 | Outpatient (CLI) | payer BC, SELFPAY ==
--- OUTSIDE RECORDS SUMMARY | 2023-08-10 17:58 | XMS RPT_ITS | CCD ---
Author Name Unknown Address [address] [place] [address] Organization [facility] Care Team Providers Care Distance Learning Coordinator Name Role Phone Unavailable Primary Care Provider Unavailamy Sandoval MD, Noelle Jiménez Primary Care Provider OG JASON Referring Unavailable SKYLAR, DWAIN L Attending Unavailable NOELLE SANDOVAL Primary Care Unavailable OG JASON Referring Unavailable CARRAU DWAIN Ela Attending Unavailable CONSULT, OTOLARYNGOLOGY/ENT Consulting Unav ailable FACUNDO WILSON Attending Unavailable NOELLE SANDOVAL Primary Care Unavailable OSIRIS GONZALEZ Referring Unavailable CARRAU, DWAIN L Referring Unavailable CARRAU, DWAIN L Admitting Unavailable SKYLAR, DWAIN L Attending Unavailable MELODIE BURT Referring Unavailable MELODIE BURT Attending Unavailable CARRAU, DWAIN L Attending Unavailable CARRAU, DWAIN L Referring Unavailable CARRAU, DWAIN L Attending Unavailable OG JASON Referring Unavailable CARRAU, DWAIN L Referring Unavailable CARRAU, DWAIN L Attending Unavailable CARRAU, DWAIN L Referring Unavailable CARRAU, DWAIN L Attending Unavailable NOELLE SANDOVAL Primary Care Unavailable Allergies Allergy Classification Reported Allergen(s) Allergy Type Date of Onset Reaction(s) Facility (7 sources) Benzocaine Drug Allergy 02-16-2023 Rash [facility] (4 sources) *Seasonal Propensity to adverse reactions to substance 03-24-2023 [facility] Medications Current Medications Medication Drug Class(es) Dates Sig (Normalized) Sig (Original) acetaminophen 325 mg / HYDROcodone bitartrate 5 mg oral tablet (4 sources) Opioid Agonist Start: 03-31-20 End: 04-07-20 take 1 tablet by mouth every six hours as needed for pain hydroCODone-acetamino phen 5-325 MG tablet Indications: Post-op pain Take 1 tablet by mouth every 6 hours as needed for Moderate Pain or Severe Pain for up to 7 days. 8 tablet 0 03/31/2023 Active amoxicillin 875 mg / clavulanate 125 mg oral tablet (3 sources) Penicillin-class Antibacterial Start: 03-31-20 End: 04-07-20 take 1 tablet by mouth every twelve hours Amoxicillin-clavulana te 875-125 MG tablet Take 1 tablet by mouth every 12 hours for 7 days. 14 tablet 0 03/31/2023 04/07/2023 Active ascorbic acid 1000 mg oral capsule (7 sources) Vitamin C take 1 capsule by mouth once daily Ascorbic Acid Buffered (Buffered Vitamin C) 1000 MG capsule Take 1,000 mg by mouth daily. 0 Active Calcium-Magnesium (JOHN-MAG PO) (7 sources) Calcium-Magnesiu m (JOHN-MAG PO) Take by mouth 3 times daily. 0 Active cholecalciferol 0.05 mg oral tablet (7 sources) Vitamin D take 1 tablet by mouth once daily Cholecalciferol (Vitamin D3) 50 MCG (2000 UT) tablet Take 1 tablet by mouth daily. 0 Active cloNIDine hydrochloride 0.1 mg oral tablet (7 sources) Central alpha-2 Adrenergic Agonist Start: 11-27-19 take 1 tablet by mouth twice daily as needed cloNIDine 0.1 MG tablet Take 1 tablet by mouth 2 times daily as needed. 0 11/26/2022 Active cyclobenzaprine hydrochloride 10 mg oral tablet (7 sources) Muscle Relaxant Start: 01-17-20 take 1 tablet by mouth three times daily as needed Cyclobenzaprine 10 MG tablet Take 1 tablet by mouth 3 times daily as needed. 0 01/16/2023 Active dicyclomine hydrochloride 20 mg oral tablet (7 sources) Anticholinergic Start: 01-11-20 take 1 tablet by mouth four times daily Dicyclomine 20 MG tablet Take 1 tablet by mouth 4 times daily. 0 01/10/2023 Active DULoxetine 60 mg delayed release oral capsule (7 sources) Serotonin and Norepinephrine Reuptake Inhibitor Start: 02-01-20 take 1 capsule by mouth once daily DULoxetine [address] Particles capsule DR Take 1 capsule by mouth daily. 0 01/31/2023 Active lysine 500 mg oral tablet (7 sources) take 1 tablet by mouth once daily Lysine HCl (L-Formula Lysine HCl) 500 MG tablet Take 1 tablet by mouth daily. 0 Active Magnesium (3 sources) take 1 tablet by mouth once daily Magnesium 250 MG tablet Take 1 tablet by mouth daily. 0 Active methylPREDNISolone 4 mg oral tablet (4 sources) Corticosteroid Start: 04-03-20 End: 04-13-20 methylPREDNIsolone 4 MG Tab Therapy Pack tablet Take 1 tablet by mouth As directed. follow package directions 21 Each 0 04/13/2023 Active Multiple Vitamin (MULTIVITAMIN ADULT PO) (1 source) Multiple Vitamin (MULTIVITAMIN ADULT PO) Take by mouth daily. Balance of nature (fruits & vegetables vitamin) 0 Active pantoprazole 20 mg delayed release oral tablet (7 sources) Proton Pump Inhibitor Start: 11-09-19 take 1 tablet by mouth twice daily pantoprazole [address] tablet DR Take 1 tablet by mouth 2 times daily. 0 11/08/2022 Active pilocarpine hydrochloride 5 mg oral tablet (1 source) Cholinergic Receptor Agonist Start: 05-09-20 End: 08-07-19 24 take 1 tablet by mouth three times daily pilocarpine 5 MG tablet Take 1 tablet by mouth 3 times daily. 90 tablet 3 05/09/2023 08/07/2023 Active Probiotic Product (PROBIOTIC PO) (7 sources) Probiotic Produc t (PROBIOTIC PO) Take by mouth daily. 0 Active Completed/Discontinued Medications Medication Drug Class(es) Dates Sig (Normalized) Sig (Original) acetaminophen 325 mg oral tablet (1 source) Start: 03-31-2023 End: 03-31-2023 take 1 tablet by mouth every four hours as needed Acetaminophen (TYLENOL) tablet 650 mg ALPRAZolam 1 mg oral tablet (1 source) Benzodiazepine Start: 01-15-2023 End: 02-16-2023 ALPRAZolam 1 MG tablet Take 1 tablet by mouth. 0 01/15/2023 02/16/2023 Discontinued Ampicillin-Sulbactam Sodium (UNASYN) 3 g in sodium chloride 0.9% (MB PLUS) 100 mL (total volume) IVPB (1 source) Start: 04-02-2023 End: 04-02-2023 Ampicillin-Sulbacta m Sodium (UNASYN) 3 g in sodium chloride 0.9% (MB PLUS) 100 mL (total volume) IVPB calcium chloride 0.0014 meq/ml / potassium chloride 0.004 meq/ml / sodium chloride 0.103 meq/ml / sodium lactate 0.028 meq/ml injectable solution (3 sources) Start: 04-02-2023 End: 04-02-2023 Lactated ringers IV solution 1,000 mL Problems Active Problems Problem Classification Problem Date Documented Da te Episodic/Chronic Diseases of mouth; excluding dental (14 sources) Sialoadenitis; Translations: [Sialoadenitis, unspecified] Onset: 3 02-16-2023 Episodic Other gastrointestinal disorders (1 source) H/O: gastrointestinal disease; Translations: [Personal history of other diseases of the digestive system] 04-03-2023 Episodic Other gastrointestinal disorders (2 sources) Personal history of other diseases of the digestive system; Translations: [Personal history of other diseases of the digestive system] Onset: 3 Episodic Other nervous system disorders (1 source) Postoperative pain ; Translations: [Other acute postprocedural pain] 03-31-2023 Episodic Other nervous system disorders (2 sources) Other acute postprocedural pain; Translations: [Other acute postprocedural pain] Onset: 3 Episodic Residual codes; unclassified (2 sources) Other specified health status; Translations: [Other specified health status] Onset: 3 Episodic Past or Other Problems Problem Classification Problem Date Documented Da te Episodic/Chronic Mood disorders (7 sources) Mood disorders Onset: 02-16-2023 Resolved: 05-09-2023 02-16-2023 Results Test Name Value Interpretation Reference Range Facil ity Vital Signs Date Time Vital Sign Value Performing Clinician Faci lity 05-09-2023 13:26-0400 Body mass index (BMI) [Ratio] 26.59 kg/m2 Dwain Cheng MD Work Phone: [facility] 05-09-2023 13:26-0400 Body temperature 97.5 [degF] Dwain Cheng MD Work Phone: [facility] 05-09-2023 13:26-0400 Body weight 79.33 kg Dwain Cheng MD Work Phone: [facility] Encounters Encounter Date Encounter Type Care Provider Facility Start: 05-09-2023 ambulatory OG JASON Facility :[facility] Start: 05-09-2023 End: 05-09-2023 Postop follow up visit related to original px Dwain Cheng MD Work Phone: Department of Otolaryngology Procedures Date Procedure Procedure Detail Performing Clinician Start: 05-09-2023 Follow-up visit Follow-up DWAIN CHENG Start: 04-03-2023 CBC AND ELECTRONIC DIFF Pranav C Hacker PAC Work Phone: Start: 04-03-2023 Complete blood count with white cell differential, automated Pranav C Hacker PAC Work Phone: Start: 04-03-2023 Creatinine blood Pranav C Hacker PAC Work Phone: Start: 04-02-2023 LT BLUE TOP TUBE Danny Ly MD Work Phone: Start: 03-31-2023 End: 03-31-2023 CONTINUOUS CARDIAC MONITORING STRIP Other Other Start: 02-16-2023 Rheumatoid factor quantitative Melodie Arreola Vala RADIOLOGY PHYSICIAN ASSISTANT-CONTRACTOR [employer] Work Phone: Start: 02-16-2023 Sedimentation rate r bc automated Melodie Burt RADIOLOGY PHYSICIAN ASSISTANT-CONTRACTOR [employer] Work Phone: Plan of Treatment Date Care Activity Detail Author Start: 07-12-2031 Tetanus vaccination TETANUS [facility] Start: 05-09-2023 End: 05-09-2023 Patient encounter procedure 05/09/2023 2:45 PM EDT Office Visit Department of Otolaryngology [address] [place] [address] Dwain Cheng MD [address] [place] [address] Department of Otolaryngology Start: 04-13-2023 End: 04-13-2023 Patient encounter procedure 04/13/2023 9:45 AM EDT Office Visit Department of Otolaryngology [address] [place] [address] Dwain Cheng MD [address] [place] [address] Department of Otolaryngology Start: 04-07-2023 Influenza vaccination INFLUENZA VACCINE (#1) [facility] Start: 03-31-2023 End: 03-31-2023 Admission to same day surgery center 03/31/2023 12:00 PM EDT - 03/31/2023 1:15 PM EDT Surgery [facility] [address] [place] [address] Dwain Cheng MD [address] [place] [address] SIALOENDOSCOPY [facility] Immunizations Immunization Date Immunization Notes Care Provider Fa cility 07-12-2022 influenza virus vaccine, unspecified formulation Dwain Cheng MD Work Phone: [facility] Payers Date Payer Category Payer Unknown JOANNA MARSHALL O PPO POS [id number] 2022-Present [address] [place] [address] [id number] 2022 Unknown [id number] 1960 Unknown [id number] 1960 Unknown [id number] 1960 Unknown [id number] 1960 Unknown [id number] 1960 Unknown [id number] 1960 Unknown [id number] 1960 Unknown [id number] 1960 Unknown [id number] 1960 Unknown [id number] Social History Date Type Detail Facility Start: 02-14-2023 [facility] Start: 02-14-2023 Tobacco use and exposure Smoke less tobacco non-user [facility] Start: 02-16-2023 End: 05-09-2023 Alcohol intake Current drinker of alcohol (finding) [facility] Start: 02-16-2023 End: 05-09-2023 Alcohol intake [facility] Start: 02-16-2023 End: 05-09-2023 Tobacco use panel [facility] Adolescent depressio n screening assessment 0 [facility] Start: 1960 Sex Assigned At Not on file [facility] Medical Equipment Procedure Code Equipment Code Equipment Origin al Text Equipment Identifier Dates Stent Salivary 1 mm Yasemin Pebax Radiopaque Short Term - [id number] Start: 03-31-2023 Clinical Notes 02-16-2023 to 05-09-2023 Jose Crum MD - 05/09/2023 1:45 PM Landy Cheng MD - 05/09/2023 1:45 PM Felipe Saleh APRN-CONTRACTOR [employer] - 04/13/2023 9:45 AM Landy Cheng MD - 04/13/2023 9:45 AM EDTAttachments Note Date & Type Note Facility 05-09-2023 History of Presen t illness Narrative HPI: Chelo Valdivia was seen 05/09/2023 in the [facility] for 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 She is s/p bilateral submandibular duct dilation with stenting carried out on 03/31/2023. History and review of systems is negative for changes since last visit. She is doing well. Patient endorses chronic dry mouth. Improved bilateral floor of mouth pain and swelling - none currently. Patient denies new symptoms such as dysphagia, odynophagia, otalgia, dyspnea. Nursing documentation has been reviewed Past Medical History: Diagnosis Date Delayed emergence from anesthesia Fibromyalgia GERD (gastroesophageal reflux disease) IBS (irritable bowel syndrome) Past Surgical History: Procedure Laterality Date SIALOENDOSCOPY Bilateral 03/31/2023 Laterality: Bilateral; Surgeon: Dwain Cheng MD; Location: [facility] MAIN OR CHOLECYSTECTOMY PARTIAL THYROIDECTOMY SHOULDER SURGERY Bilateral Current Outpatient Medications Medication Sig Dispense Refill Ascorbic Acid Buffered (Buffered Vitamin C) 1000 MG capsule Take 1,000 mg by mouth daily. Calcium-Magnesium (JOHN-MAG PO) Take by mouth 3 times daily. Cholecalciferol (Vitamin D3) 50 MCG (2000 UT) tablet Take 1 tablet by mouth daily. cloNIDine 0.1 MG tablet Take 1 tablet by mouth 2 times daily as needed. Cyclobenzaprine 10 MG tablet Take 1 tablet by mouth 3 times daily as needed. Dicyclomine 20 MG tablet Take 1 tablet by mouth 4 times daily. DULoxetine [address] Particles capsule DR Take 1 capsule by mouth daily. Lysine HCl (L-Formula Lysine HCl) 500 MG tablet Take 1 tablet by mouth daily. Multiple Vitamin (MULTIVITAMIN ADULT PO) Take by mouth daily. Balance of nature (fruits & vegetables vitamin) pantoprazole [address] tablet DR Take 1 tablet by mouth 2 times daily. Probiotic Product (PROBIOTIC PO) Take by mouth daily. hydroCODone-acetaminophen 5-325 MG tablet Take 1 tablet by mouth every 6 hours as needed for Moderate Pain or Severe Pain for up to 7 days. 8 tablet 0 methylPREDNIsolone 4 MG Tab Therapy Pack tablet Take 1 tablet by mouth As directed. follow package directions (Patient not taking: Reported on 05/09/2023) 21 Each 0 No current facility-administered medications for this visit. Allergies Allergen Reactions Benzocaine, Topical Rash All topical ivis *Seasonal Exam: BP 128/70 Pulse 79 Temp 97.5 F (36.4 C) (Oral) Resp 20 Wt 79.3 kg (174 lb 14.4 oz) Comment: with sandals on SpO2 98% Comment: room air BMI 26.59 kg/m Smoking Status Never BP 128/70 Pulse 79 Temp 97.5 F (36.4 C) (Oral) Resp 20 Wt 79.3 kg (174 lb 14.4 oz) Comment: with sandals on SpO2 98% Comment: room air BMI 26.59 kg/m Smoking Status Never Documented vital signs from today's visit reviewed. Physical exam including head and neck examination of the oral cavity, oropharynx, larynx, and hypopharynx including indirect mirror exam as well as inspection and palpation of the face, parotid and neck is unchanged and negative for new lesions, masses or lymphadenopathy. No active infection. Airway is adequate. Xerostomia. Prominent parotid duct papillae. SMG and SMG duct/papilla without tenderness and/or edema. Impression/Plan: Chelo Valdivia is a 63 y.o. 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 Overall I believe patient is doing well and healing well. Her SMG sialadenitis has resolved. Bilateral SMG ducts are patent. Still suffering from xerostomia. At this point I am recommending a trial of pilocarpine. 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 She is s/p bilateral submandibular duct dilation with stenting carried out on 03/31/2023. History and review of systems is negative for changes since last visit. She is doing well. Patient endorses chronic dry mouth. Continues to have bilateral pain and swelling. Patient denies new symptoms such as dysphagia, odynophagia, otalgia, headaches, dyspnea, cough, facial pain, vision or hearing changes. Nursing documentation has been reviewed Past Medical History: Diagnosis Date Delayed emergence from anesthesia Fibromyalgia GERD (gastroesophageal reflux disease) IBS (irritable bowel syndrome) Past Surgical History: Procedure Laterality Date SIALOENDOSCOPY Bilateral 03/31/2023 Laterality: Bilateral; Surgeon: Dwain Cheng MD; Location: [facility] MAIN OR CHOLECYSTECTOMY PARTIAL THYROIDECTOMY SHOULDER SURGERY Bilateral Current Outpatient Medications Medication Sig Dispense Refill Ascorbic Acid Buffered (Buffered Vitamin C) 1000 MG capsule Take 1,000 mg by mouth daily. Calcium-Magnesium (JOHN-MAG PO) Take by mouth 3 times daily. Cholecalciferol (Vitamin D3) 50 MCG (2000 UT) tablet Take 1 tablet by mouth daily. cloNIDine 0.1 MG tablet Take 1 tablet by mouth 2 times daily as needed. Cyclobenzaprine 10 MG tablet Take 1 tablet by mouth 3 times daily as needed. Dicyclomine 20 MG tablet Take 1 tablet by mouth 4 times daily. DULoxetine [address] Particles capsule DR Take 1 capsule by mouth daily. Lysine HCl (L-Formula Lysine HCl) 500 MG tablet Take 1 tablet by mouth daily. Multiple Vitamin (MULTIVITAMIN ADULT PO) Take by mouth daily. Balance of nature (fruits & vegetables vitamin) pantoprazole [address] tablet DR Take 1 tablet by mouth 2 times daily. Probiotic Product (PROBIOTIC PO) Take by mouth daily. hydroCODone-acetaminophen 5-325 MG tablet Take 1 tablet by mouth every 6 hours as needed for Moderate Pain or Severe Pain for up to 7 days. 8 tablet 0 methylPREDNIsolone 4 MG Tab Therapy Pack tablet Take 1 tablet by mouth As directed. follow package directions (Patient not taking: Reported on 05/09/2023) 21 Each 0 No current facility-administered medications for this visit. Allergies Allergen Reactions Benzocaine, Topical Rash All topical ivis *Seasonal Exam: BP 128/70 Pulse 79 Temp 97.5 F (36.4 C) (Oral) Resp 20 Wt 79.3 kg (174 lb 14.4 oz) Comment: with sandals on SpO2 98% Comment: room air BMI 26.59 kg/m Smoking Status Never BP 128/70 Pulse 79 Temp 97.5 F (36.4 C) (Oral) Resp 20 Wt 79.3 kg (174 lb 14.4 oz) Comment: with sandals on SpO2 98% Comment: room air BMI 26.59 kg/m Smoking Status Never Documented vital signs from today's visit reviewed. Physical exam including head and neck examination of the oral cavity, oropharynx, larynx, and hypopharynx including indirect mirror exam as well as inspection and palpation of the face, parotid and neck is unchanged and negative for new lesions, masses or lymphadenopathy. No active infection. Airway is adequate. +Bilat SMG and lingual salivary gland tender to palpation. Impression/Plan: Chelo Valdivia is a 63 y.o. 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 Overall I believe patient is doing well and healing well. . 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 She is s/p bilateral submandibular duct dilation with stenting carried out on 03/31/2023. History and review of systems is negative for changes since last visit. She is doing well. Patient endorses chronic dry mouth. Continues to have bilateral pain and swelling. Patient denies new symptoms such as dysphagia, odynophagia, otalgia, headaches, dyspnea, cough, facial pain, vision or hearing changes. Nursing documentation has been reviewed Past Medical History: Diagnosis Date Delayed emergence from anesthesia Fibromyalgia GERD (gastroesophageal reflux disease) IBS (irritable bowel syndrome) Past Surgical History: Procedure Laterality Date SIALOENDOSCOPY Bilateral 03/31/2023 Laterality: Bilateral; Surgeon: Dwain Cheng MD; Location: [facility] MAIN OR CHOLECYSTECTOMY PARTIAL THYROIDECTOMY SHOULDER SURGERY Bilateral Current Outpatient Medications Medication Sig Dispense Refill Ascorbic Acid Buffered (Buffered Vitamin C) 1000 MG capsule Take 1,000 mg by mouth daily. Calcium-Magnesium (JOHN-MAG PO) Take by mouth 3 times daily. Cholecalciferol (Vitamin D3) 50 MCG (2000 UT) tablet Take 1 tablet by mouth daily. cloNIDine 0.1 MG tablet Take 1 tablet by mouth 2 times daily as needed. Cyclobenzaprine 10 MG tablet Take 1 tablet by mouth 3 times daily as needed. Dicyclomine 20 MG tablet Take 1 tablet by mouth 4 times daily. DULoxetine [address] Particles capsule DR Take 1 capsule by mouth daily. HERBAL PRODUCT Take by mouth daily. Cataplex E and Symplex F HERBAL PRODUCT Take by mouth daily. Trace minerals hydroCODone-acetaminophen 5-325 MG tablet Take 1 tablet by mouth every 6 hours as needed for Moderate Pain or Severe Pain for up to 7 days. 8 tablet 0 Lysine HCl (L-Formula Lysine HCl) 500 MG tablet Take 1 tablet by mouth daily. methylPREDNIsolone 4 MG Tab Therapy Pack tablet Take 1 tablet by mouth As directed PRN. follow package directions 21 tablet 0 Multiple Vitamins-Minerals (OCUVITE EXTRA PO) Take by mouth. pantoprazole [address] tablet DR Take 1 tablet by mouth 2 times daily. Probiotic Product (PROBIOTIC PO) Take by mouth daily. No current facility-administered medications for this visit. Allergies Allergen Reactions Benzocaine, Topical Rash All topical ivis *Seasonal Exam: Smoking Status Never BP 121/56 (BP Location: Right arm, BP Position: Sitting) Pulse 79 Temp 97.1 F (36.2 C) (Oral) Resp 16 Wt 78.7 kg (173 lb 8 oz) SpO2 99% BMI 26.38 kg/m Smoking Status Never Documented vital signs from today's visit reviewed. Physical exam including head and neck examination of the oral cavity, oropharynx, larynx, and hypopharynx including indirect mirror exam as well as inspection and palpation of the face, parotid and neck is unchanged and negative for new lesions, masses or lymphadenopathy. No active infection. Airway is adequate. +Bilat SMG and lingual salivary gland tender to palpation. Impression/Plan: Chelo Valdivia is a 63 y.o. 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 Overall I believe patient is doing well and healing well. At this point I am recommending a medrol dosepak and possible dilation of SMG in the office in 3-4 weeks Attestation: I interviewed and examined Chelo Valdivia, referred to me due to sialadenitis, with Melodie GRANADOS ([employer] OPERATOR). I discussed the differential diagnosis and plan and reviewed all her notes. I agree with the documentation. I also reviewed the medication list, and social,family, medical, surgical and allergy history and current complaints as well as examined the patient. Please see note for details regarding these. I have personally reviewed the imaging, labs, and pathology if pertinent to this issue.. I personally performed or was present throughout the entire duration of the procedures. Pertinent examinations findings have been highlighted in the note. . 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 She is s/p bilateral submandibular duct dilation with stenting carried out on 03/31/2023. History and review of systems is negative for changes since last visit. She is doing well. Patient endorses chronic dry mouth. Continues to have bilateral pain and swelling. Patient denies new symptoms such as dysphagia, odynophagia, otalgia, headaches, dyspnea, cough, facial pain, vision or hearing changes. Nursing documentation has been reviewed Past Medical History: Diagnosis Date Delayed emergence from anesthesia Fibromyalgia GERD (gastroesophageal reflux disease) IBS (irritable bowel syndrome) Past Surgical History: Procedure Laterality Date SIALOENDOSCOPY Bilateral 03/31/2023 Laterality: Bilateral; Surgeon: Dwain Cheng MD; Location: [facility] MAIN OR CHOLECYSTECTOMY PARTIAL THYROIDECTOMY SHOULDER SURGERY Bilateral Current Outpatient Medications Medication Sig Dispense Refill Ascorbic Acid Buffered (Buffered Vitamin C) 1000 MG capsule Take 1,000 mg by mouth daily. Calcium-Magnesium (JOHN-MAG PO) Take by mouth 3 times daily. Cholecalciferol (Vitamin D3) 50 MCG (2000 UT) tablet Take 1 tablet by mouth daily. cloNIDine 0.1 MG tablet Take 1 tablet by mouth 2 times daily as needed. Cyclobenzaprine 10 MG tablet Take 1 tablet by mouth 3 times daily as needed. Dicyclomine 20 MG tablet Take 1 tablet by mouth 4 times daily. DULoxetine [address] Particles capsule DR Take 1 capsule by mouth daily. HERBAL PRODUCT Take by mouth daily. Cataplex E and Symplex F HERBAL PRODUCT Take by mouth daily. Trace minerals Lysine HCl (L-Formula Lysine HCl) 500 MG tablet Take 1 tablet by mouth daily. Multiple Vitamins-Minerals (OCUVITE EXTRA PO) Take by mouth. pantoprazole [address] tablet DR Take 1 tablet by mouth 2 times daily. Probiotic Product (PROBIOTIC PO) Take by mouth daily. hydroCODone-acetaminophen 5-325 MG tablet Take 1 tablet by mouth every 6 hours as needed for Moderate Pain or Severe Pain for up to 7 days. 8 tablet 0 methylPREDNIsolone 4 MG Tab Therapy Pack tablet Take 1 tablet by mouth As directed PRN. follow package directions (Patient not taking: Reported on 04/13/2023) 21 tablet 0 No current facility-administered medications for this visit. Allergies Allergen Reactions Benzocaine, Topical Rash All topical ivis *Seasonal Exam: BP 121/56 (BP Location: Right arm, BP Position: Sitting) Pulse 79 Temp 97.1 F (36.2 C) (Oral) Resp 16 Wt 78.7 kg (173 lb 8 oz) SpO2 99% BMI 26.38 kg/m Smoking Status Never BP 121/56 (BP Location: Right arm, BP Position: Sitting) Pulse 79 Temp 97.1 F (36.2 C) (Oral) Resp 16 Wt 78.7 kg (173 lb 8 oz) SpO2 99% BMI 26.38 kg/m Smoking Status Never Documented vital signs from today's visit reviewed. Physical exam including head and neck examination of the oral cavity, oropharynx, larynx, and hypopharynx including indirect mirror exam as well as inspection and palpation of the face, parotid and neck is unchanged and negative for new lesions, masses or lymphadenopathy. No active infection. Airway is adequate. +Bilat SMG and lingual salivary gland tender to palpation. Impression/Plan: Chelo Valdivia is a 63 y.o. 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 Overall I believe patient is doing well and healing well. At this point I am recommending a medrol dosepak and possible dilation of SMG in the office in 3-4 weeks Attestation: I interviewed and examined Chelo Valdivia, referred to me due to siladenitis, with Melodie GRANADOS ([employer] M[employer]ER OPERATOR). I discussed the differential diagnosis and plan and reviewed all her notes. I agree with the documentation. I also reviewed the medication list, and social,family, medical, surgical and allergy history and current complaints as well as examined the patient. Please see note for details regarding these. I have personally reviewed the imaging, labs, and pathology if pertinent to this issue.. I personally performed or was present throughout the entire duration of the procedures. Pertinent examinations findings have been highlighted in the note. . documented in this encounter [facility] 04-13-2023 Instructions ROBERTA Broderick - 04/13/2023 9:45 AM EDT Please call Dr. Cheng's nurse, Candi, at [phone] if you notice any new lumps in head or neck, new onset of difficulty with swallowing, persistent ear pain, hoarseness or new pains in head and neck that don't go away for 2 weeks. documented in this encounter [facility] 04-03-2023 Hospital Brayan Renee, ROEBRTA - 04/03/2023 1:21 PM EDT Thank you for choosing [facility] in your time of healthcare need and for allowing us to answer your questions today. If any other questions or concerns arise, please do not hesitate to call the [facility] ED Clinical Energy Efficiency Finance Manager at . At this time, there are not signs of immediately serious illness or injury, but conditions can change and/or develop with time, and, not all signs or symptoms may have been shown at this visit. Please return to the ER or see a doctor immediately if you have worsening right facial pain or neck pain, fever > 101.0 or any other concerning symptoms. You have been given a prescription for medrol pack, take as directed. You already have a prescription for Augmentin, start and take as directed. Below are the labs and imaging that were obtained during your visit. Please provide this to your primary care provider at your follow up. Results for orders placed or performed during the hospital encounter of 04/02/23 [facility] 7 - ED Result Value Ref Range Sodium 138 135 - 145 mmol/L Potassium 4.1 3.5 - 5.0 mmol/L Chloride 108 98 - 108 mmol/L CO2 24 21 - 31 mmol/L Glucose 130 (H) 70 - 99 mg/dL BUN 7 7 - 25 mg/dL Creatinine 0.51 0.50 - 1.20 mg/dL Bun/Crea Ratio 14 Osmolality (Calculated) 289 278 - 305 mOsm/kg Anion Gap 10 7 - 17 mmol/L eGFR, CKD-EPI, Female >90 >=60 mL/min/1.73m2 CBC AND ELECTRONIC DIFF Result Value Ref Range WBC Count 9.13 3.99 - 11.19 K/uL RBC Count 4.88 3.91 - 5.04 M/uL Hemoglobin 13.9 11.4 - 15.2 g/dL Hematocrit 42.4 34.9 - 44.3 % Mean Cell Volume 86.9 79.6 - 97.7 fL Mean Cell Hgb 28.5 25.9 - 33.9 pg Mean Cell Hgb Conc 32.8 31.4 - 35.9 g/dL RBC Distribution 12.6 10.8 - 14.9 % Platelet Count 287 150 - 393 K/uL Mean Platelet Volume 8.7 8.5 - 12.2 fL DIFF STATUS Electronic Differential Segs + Bands Auto 86.4 % Immature Grans % 0.5 % Lymphocyte % Auto 9.5 % Monocyte % Auto 3.5 % Eosinophil % Auto 0.0 % Basophil % Auto 0.1 % Nucleated RBC 0.0 <=0.2 /100 WBC Segs + Bands,Absolute Auto 7.88 (H) 1.64 - 7.28 K/uL Immature Grans Absolute 0.05 <=0.08 K/uL Abs Lymph Auto 0.87 (L) 1.16 - 3.51 K/uL Abs [place] Auto 0.32 0.22 - 0.87 K/uL Abs Eos Auto <0.04 0.00 - 0.42 K/uL Abs Baso Auto <0.04 0.00 - 0.15 K/uL The following attachments cannot be sent through Care Everywhere.Sialolithiasis (Rwandan)documented in this encounter [facility] 04-03-2023 History of Presen t illness Narrative Last 24: Feels significantly better today and would like to try diet Is okay with discharge after PO challenge Exam: Alert, oriented, NAD Left submandibular gland fullness and tenderness to palpation with limited erythema. No pus expressed from bilateral Anibal's ducts Neck otherwise soft Laboratory and Objective Data: Temp: [97.5 F (36.4 C)-98.2 F (36.8 C)] 98.2 F (36.8 C) Pulse (Heart Rate): [87-110] 99 Resp Rate: [16-19] 16 BP: (141-163)/(70-99) 141/71 O2 Sat (%): [93 %-99 %] 96 % Oxygen Therapy O2 Sat (%): 96 % O2 Device: room air Fluid Management (24hrs): Intake/Output last 3 shifts: No intake/output data recorded. WBC/Hgb/Hct/Plts: 9.13/13.9/42.4/287 (04/03 542) Na/K+/Phos/Mg/Ca: 138/4.1/--/--/-- (04/03 542) Bun/Creat/Cl/CO2/Glucose: 7/0.51/108/24/130 (04/03 542) Assessment: Chelo Valdivia is a(n) 63 y.o. female s/p sialedenoscopy 03/31 presenting with signs of sialoadenitis and possible retrograde infection. On exam she is breathing well on room air. Physical exam and scope exam consistent with submandibular edema extending into right neck. CT shows obstruction of duct and submandibuar/neck edema also consistent with exam findings. Feels better today and would like to try diet. - OK for soft diet - If tolerates PO well, ok for discharge on augmentin (x7d course), medrol dosepack, and oxycodone for pain control Esperanza Kaiser MD Otolaryngology - Head & Neck Surgery Pager: [phone] documented in this encounter [facility] 04-03-2023 Physician Emergency department Note This patient was appropriately risk stratified for observation level of care and placed on an observation protocol in our Clinical Decision Unit. The patient's intensity of service and severity of illness was appropriately aligned with observation level of care. Medical Decision Making Risk Prescription drug management. 63 y.o. female with history of fibromyalgia, GERD, IBS s/p sialdenoscopy 03/31/[address] Cheng. She woke up this morning around 2 am with right neck pain, swelling, and pain opening her mouth. She was transferred from [facility] with concern for possible stent obstruction. She was placed in Observation under the General Protocol. Her labs were reviewed: Results for orders placed or performed during the hospital encounter of 04/02/23 [facility] 7 - ED Result Value Ref Range Sodium 138 135 - 145 mmol/L Potassium 4.1 3.5 - 5.0 mmol/L Chloride 108 98 - 108 mmol/L CO2 24 21 - 31 mmol/L Glucose 130 (H) 70 - 99 mg/dL BUN 7 7 - 25 mg/dL Creatinine 0.51 0.50 - 1.20 mg/dL Bun/Crea Ratio 14 Osmolality (Calculated) 289 278 - 305 mOsm/kg Anion Gap 10 7 - 17 mmol/L eGFR, CKD-EPI, Female >90 >=60 mL/min/1.73m2 CBC AND ELECTRONIC DIFF Result Value Ref Range WBC Count 9.13 3.99 - 11.19 K/uL RBC Count 4.88 3.91 - 5.04 M/uL Hemoglobin 13.9 11.4 - 15.2 g/dL Hematocrit 42.4 34.9 - 44.3 % Mean Cell Volume 86.9 79.6 - 97.7 fL Mean Cell Hgb 28.5 25.9 - 33.9 pg Mean Cell Hgb Conc 32.8 31.4 - 35.9 g/dL RBC Distribution 12.6 10.8 - 14.9 % Platelet Count 287 150 - 393 K/uL Mean Platelet Volume 8.7 8.5 - 12.2 fL DIFF STATUS Electronic Differential Segs + Bands Auto 86.4 % Immature Grans % 0.5 % Lymphocyte % Auto 9.5 % Monocyte % Auto 3.5 % Eosinophil % Auto 0.0 % Basophil % Auto 0.1 % Nucleated RBC 0.0 <=0.2 /100 WBC Segs + Bands,Absolute Auto 7.88 (H) 1.64 - 7.28 K/uL Immature Grans Absolute 0.05 <=0.08 K/uL Abs Lymph Auto 0.87 (L) 1.16 - 3.51 K/uL Abs [place] Auto 0.32 0.22 - 0.87 K/uL Abs Eos Auto <0.04 0.00 - 0.42 K/uL Abs Baso Auto <0.04 0.00 - 0.15 K/uL Her imaging was reviewed by ENT. She received IV Unasyn and steroids. She initially reported some improvement and then developed pain with cough. ENT re-evaluated this patient and recommended discharge with antibiotics, steroid taper, oxycodone for pain and a soft diet. Physical Exam: Temp: [97.5 F (36.4 C)-98.2 F (36.8 C)] 97.5 F (36.4 C) Pulse (Heart Rate): [87-110] 103 Resp Rate: [17-19] 17 BP: (143-163)/(70-99) 157/71 O2 Sat (%): [93 %-99 %] 93 % Lungs clear, Cor - RR No trismus, right sided neck fullness Disposition: Discharge The patient has met appropriate clinical criteria to be discharged from this CDU observation protocol. Reasons to return to the ED were discussed with the patient. The patient will be instructed to follow up with their primary care physician and her Medical Pathology Teacher. Clinical Impression: 1) Digestive gland stent obstruction 2) I saw and evaluated the patient with BRIGIDO. I provided a substantive portion of the care for this patient. I personally performed all aspects of the medical decision making for this encounter. I have reviewed and verified this with the BRIGIDO so that it accurately reflects our care. I have personally spent 17 minutes or greater in discharge time which includes: final examination, preparing discharge instructions, discharge summary, prescriptions, and ambulatory referrals. Facundo Wilson MD 04/03/23 1313 [facility] Work Phone: 04-03-2023 Emergency department Note This patient was appropriately risk stratified for observation level of care and placed on an observation protocol in our Clinical Decision Unit. The patient's intensity of service and severity of illness was appropriately aligned with observation level of care. Medical Decision Making Risk Prescription drug management. 63 y.o. female with history of fibromyalgia, GERD, IBS s/p sialdenoscopy 03/31/[address] Cheng. She woke up this morning around 2 am with right neck pain, swelling, and pain opening her mouth. She was transferred from [facility] with concern for possible stent obstruction. She was placed in Observation under the General Protocol. Her labs were reviewed: Results for orders placed or performed during the hospital encounter of 04/02/23 [facility] 7 - ED Result Value Ref Range Sodium 138 135 - 145 mmol/L Potassium 4.1 3.5 - 5.0 mmol/L Chloride 108 98 - 108 mmol/L CO2 24 21 - 31 mmol/L Glucose 130 (H) 70 - 99 mg/dL BUN 7 7 - 25 mg/dL Creatinine 0.51 0.50 - 1.20 mg/dL Bun/Crea Ratio 14 Osmolality (Calculated) 289 278 - 305 mOsm/kg Anion Gap 10 7 - 17 mmol/L eGFR, CKD-EPI, Female >90 >=60 mL/min/1.73m2 CBC AND ELECTRONIC DIFF Result Value Ref Range WBC Count 9.13 3.99 - 11.19 K/uL RBC Count 4.88 3.91 - 5.04 M/uL Hemoglobin 13.9 11.4 - 15.2 g/dL Hematocrit 42.4 34.9 - 44.3 % Mean Cell Volume 86.9 79.6 - 97.7 fL Mean Cell Hgb 28.5 25.9 - 33.9 pg Mean Cell Hgb Conc 32.8 31.4 - 35.9 g/dL RBC Distribution 12.6 10.8 - 14.9 % Platelet Count 287 150 - 393 K/uL Mean Platelet Volume 8.7 8.5 - 12.2 fL DIFF STATUS Electronic Differential Segs + Bands Auto 86.4 % Immature Grans % 0.5 % Lymphocyte % Auto 9.5 % Monocyte % Auto 3.5 % Eosinophil % Auto 0.0 % Basophil % Auto 0.1 % Nucleated RBC 0.0 <=0.2 /100 WBC Segs + Bands,Absolute Auto 7.88 (H) 1.64 - 7.28 K/uL Immature Grans Absolute 0.05 <=0.08 K/uL Abs Lymph Auto 0.87 (L) 1.16 - 3.51 K/uL Abs [place] Auto 0.32 0.22 - 0.87 K/uL Abs Eos Auto <0.04 0.00 - 0.42 K/uL Abs Baso Auto <0.04 0.00 - 0.15 K/uL Her imaging was reviewed by ENT. She received IV Unasyn and steroids. She initially reported some improvement and then developed pain with cough. ENT re-evaluated this patient and recommended discharge with antibiotics, steroid taper, oxycodone for pain and a soft diet. Physical Exam: Temp: [97.5 F (36.4 C)-98.2 F (36.8 C)] 97.5 F (36.4 C) Pulse (Heart Rate): [87-110] 103 Resp Rate: [17-19] 17 BP: (143-163)/(70-99) 157/71 O2 Sat (%): [93 %-99 %] 93 % Lungs clear, Cor - RR No trismus, right sided neck fullness Disposition: Discharge The patient has met appropriate clinical criteria to be discharged from this CDU observation protocol. Reasons to return to the ED were discussed with the patient. The patient will be instructed to follow up with their primary care physician and her Medical Pathology Teacher. Clinical Impression: 1) Digestive gland stent obstruction 2) I saw and evaluated the patient with BRIGIDO. I provided a substantive portion of the care for this patient. I personally performed all aspects of the medical decision making for this encounter. I have reviewed and verified this with the BRIGIDO so that it accurately reflects our care. I have personally spent 17 minutes or greater in discharge time which includes: final examination, preparing discharge instructions, discharge summary, prescriptions, and ambulatory referrals. Facundo Wilson MD 04/03/23 1317 Bed: 1145P Expected date: Expected time: Means of arrival: Comments: Skip in 67 dEPARTMENT of Emergency Medicine CHIEF COMPLAINT No chief complaint on file. IDALIA Valdivia is a 63 y.o. female with history of fibromyalgia, GERD, IBS s/p sialdenoscopy 03/31/[address] Cheng. She woke up this morning around 2 am with right neck pain, swelling, and pain opening her mouth. She called ENT health concierge this morning reporting trismus, difficulty swallowing secretions, intermittent SOB due to choking on secretions, odonyphagia, and hoarseness. She denies fever/chills. She has not been able to eat since yesterday and has not had much to drink today due to pain opening her mouth and swallowing. She was instructed to go to nearest ED in [place], as they live 90 min away. Per pt report, while there she received fluids, toradol, and CT scan obtained. CT scan there showed submandibular edema, duct obstruction, and laryngeal edema. She was subsequently transferred here for evaluation of possible stent obstruction. REVIEW OF SYSTEMS Review of Systems Constitutional: Negative for chills and fever. HENT: Positive for mouth and neck pain. Positive for hoarseness, voice change. Positive for difficulty opening her mouth, swallowing secretions. Positive for right sided neck swelling. Respiratory: Negative for cough and wheezing. Cardiovascular: Negative for chest pain. Gastrointestinal: Negative for constipation and diarrhea. PAST MEDICAL HISTORY Past Medical History: Diagnosis Date Delayed emergence from anesthesia Fibromyalgia GERD (gastroesophageal reflux disease) IBS (irritable bowel syndrome) SURGICAL HISTORY Past Surgical History: Procedure Laterality Date CHOLECYSTECTOMY PARTIAL THYROIDECTOMY SHOULDER SURGERY Bilateral CURRENT MEDICATIONS Current Facility-Administered Medications Medication Dose Route Frequency Provider Last Rate Last Admin Ampicillin-Sulbactam Sodium (UNASYN) 3 g in sodium chloride 0.9% (MB PLUS) 100 mL (total volume) IVPB 3 g Intravenous Once Jonn Berman MD dexAMETHasone (DECADRON) injection 8 mg 8 mg Intravenous Q8H Jonn Berman MD Current Outpatient Medications Medication Sig Dispense Refill Amoxicillin-clavulanate 875-125 MG tablet Take 1 tablet by mouth every 12 hours for 7 days. 14 tablet 0 Ascorbic Acid Buffered (Buffered Vitamin C) 1000 MG capsule Take 1,000 mg by mouth daily. Calcium-Magnesium (JOHN-MAG PO) Take by mouth 3 times daily. Cholecalciferol (Vitamin D3) 50 MCG (2000 UT) tablet Take 1 tablet by mouth daily. cloNIDine 0.1 MG tablet Take 1 tablet by mouth 2 times daily as needed. Cyclobenzaprine 10 MG tablet Take 1 tablet by mouth 3 times daily as needed. Dicyclomine 20 MG tablet Take 1 tablet by mouth 4 times daily. DULoxetine [address] Particles capsule DR Take 1 capsule by mouth daily. HERBAL PRODUCT Take by mouth daily. Cataplex E and Symplex F HERBAL PRODUCT Take by mouth daily. Trace minerals hydroCODone-acetaminophen 5-325 MG tablet Take 1 tablet by mouth every 6 hours as needed for Moderate Pain or Severe Pain for up to 7 days. 8 tablet 0 Lysine HCl (L-Formula Lysine HCl) 500 MG tablet Take 1 tablet by mouth daily. Multiple Vitamins-Minerals (OCUVITE EXTRA PO) Take by mouth. pantoprazole [address] tablet DR Take 1 tablet by mouth 2 times daily. Probiotic Product (PROBIOTIC PO) Take by mouth daily. ALLERGIES Allergies Allergen Reactions Benzocaine, Topical Rash All topical ivis *Seasonal FAMILY HISTORY Family History Problem Relation Age of Onset Cancer- Other Mother blood cancer Dementia Father SOCIAL HISTORY Social History Socioeconomic History Marital status: Spouse name: Not on file Number of children: Not on file Years of education: Not on file Highest education level: Not on file Occupational History Not on file Tobacco Use Smoking status: Never Smokeless tobacco: Never Vaping Use Vaping Use: Never used Substance and Sexual Activity Alcohol use: Yes Alcohol/week: 7.0 standard drinks of alcohol Types: 7 Glasses of wine per week Drug use: Never Sexual activity: Not on file Other Topics Concern Not on file Social History Narrative Not on file Social Determinants of Health Financial Resource Strain: Not on file Food Insecurity: Not on file Transportation Needs: Not on file Physical Activity: Not on file Stress: Not on file Social Connections: Not on file Intimate Partner Violence: Not on file Housing Stability: Not on file PHYSICAL EXAM BP 143/79 Pulse 87 Temp 98.1 F (36.7 C) (Oral) Resp 19 Ht 1.727 m (5' 8 ) SpO2 93% BMI 26.30 kg/m Smoking Status Never Physical Exam HENT: Head: Normocephalic and atraumatic. Nose: No congestion or rhinorrhea. Mouth/Throat: Mouth: Mucous membranes are dry. Comments: Positive for trismus, right sided submandibular tenderness, tenseness, and swelling. No overlying erythema, fluctuance, or induration. Eyes: Extraocular Movements: Extraocular movements intact. Conjunctiva/sclera: Conjunctivae normal. Cardiovascular: Rate and Rhythm: Normal rate and regular rhythm. Heart sounds: Normal heart sounds. No murmur heard. No friction rub. No gallop. Pulmonary: Effort: Pulmonary effort is normal. Breath sounds: Normal breath sounds. No wheezing, rhonchi or rales. Abdominal: General: There is no distension. Musculoskeletal: General: Normal range of motion. Skin: General: Skin is warm. Neurological: General: No focal deficit present. Mental Status: She is alert. ED COURSE & MEDICAL DECISION MAKING ED Course as of 04/02/235 [place] Apr 02, 2023 225 63 y/o female 3 days s/p bilateral anibal's gland stent placement for tx of sialoadenitis. Presenting with right sided neck swelling, pain, and trismus. Scoped by ENT. Found to have sialoadenitis with possible retrograde infection. Admitting to obs for overnight evaluation. Will receive dex 8mg Q8H, unasyn, fluids, NPO. ENT to assess for need for admission in the a.m. Medical Decision Making Chelo Valdivia is a 63 y.o. female with history of fibromyalgia, GERD, IBS s/p sialdenoscopy 03/31/23, presenting with one day of right neck pain, swelling, and trismus. Differential diagnosis includes sialoadenitis vs stent obstruction vs infection. ENT consulted for further management. Pt was scoped at bedside, with findings of laryngeal wall edema and larygnea/false vocal cord edema. Per ENT's recommendations, will administer steroids with dexamethasone 8 mg Q8H, IV unasyn, fluids, and stent removal. ENT to re-evaluate in 12 hours and assess for improvement vs need for admission at that time. Risk Prescription drug management. Jonn Berman MD Resident 04/02/232214 dEPARTMENT of Emergency Medicine CHIEF COMPLAINT No chief complaint on file. HPI Chelo Valdivia is a 63 y.o. female who presents with history of fibromyalgia, GERD, IBS, 2 days post anibal's duct dilation complains of right neck swelling and difficulty opening her mouth. There is no associated fever. There are no aggravating or relieving factors. REVIEW OF SYSTEMS Review of Systems PAST MEDICAL HISTORY Past Medical History: Diagnosis Date Delayed emergence from anesthesia Fibromyalgia GERD (gastroesophageal reflux disease) IBS (irritable bowel syndrome) SURGICAL HISTORY Past Surgical History: Procedure Laterality Date CHOLECYSTECTOMY PARTIAL THYROIDECTOMY SHOULDER SURGERY Bilateral CURRENT MEDICATIONS No current facility-administered medications for this encounter. Current Outpatient Medications Medication Sig Dispense Refill Amoxicillin-clavulanate 875-125 MG tablet Take 1 tablet by mouth every 12 hours for 7 days. 14 tablet 0 Ascorbic Acid Buffered (Buffered Vitamin C) 1000 MG capsule Take 1,000 mg by mouth daily. Calcium-Magnesium (JOHN-MAG PO) Take by mouth 3 times daily. Cholecalciferol (Vitamin D3) 50 MCG (2000 UT) tablet Take 1 tablet by mouth daily. cloNIDine 0.1 MG tablet Take 1 tablet by mouth 2 times daily as needed. Cyclobenzaprine 10 MG tablet Take 1 tablet by mouth 3 times daily as needed. Dicyclomine 20 MG tablet Take 1 tablet by mouth 4 times daily. DULoxetine [address] Particles capsule DR Take 1 capsule by mouth daily. HERBAL PRODUCT Take by mouth daily. Cataplex E and Symplex F HERBAL PRODUCT Take by mouth daily. Trace minerals hydroCODone-acetaminophen 5-325 MG tablet Take 1 tablet by mouth every 6 hours as needed for Moderate Pain or Severe Pain for up to 7 days. 8 tablet 0 Lysine HCl (L-Formula Lysine HCl) 500 MG tablet Take 1 tablet by mouth daily. Multiple Vitamins-Minerals (OCUVITE EXTRA PO) Take by mouth. pantoprazole [address] tablet DR Take 1 tablet by mouth 2 times daily. Probiotic Product (PROBIOTIC PO) Take by mouth daily. ALLERGIES Allergies Allergen Reactions Benzocaine, Topical Rash All topical ivis *Seasonal FAMILY HISTORY Family History Problem Relation Age of Onset Cancer- Other Mother blood cancer Dementia Father SOCIAL HISTORY Social History Socioeconomic History Marital status: Spouse name: Not on file Number of children: Not on file Years of education: Not on file Highest education level: Not on file Occupational History Not on file Tobacco Use Smoking status: Never Smokeless tobacco: Never Vaping Use Vaping Use: Never used Substance and Sexual Activity Alcohol use: Yes Alcohol/week: 7.0 standard drinks of alcohol Types: 7 Glasses of wine per week Drug use: Never Sexual activity: Not on file Other Topics Concern Not on file Social History Narrative Not on file Social Determinants of Health Financial Resource Strain: Not on file Food Insecurity: Not on file Transportation Needs: Not on file Physical Activity: Not on file Stress: Not on file Social Connections: Not on file Intimate Partner Violence: Not on file Housing Stability: Not on file PHYSICAL EXAM BP 143/79 Pulse 87 Temp 98.1 F (36.7 C) (Oral) Resp 19 Ht 1.727 m (5' 8 ) SpO2 93% BMI 26.30 kg/m Smoking Status Never Physical Exam Constitutional: Appearance: She is well-developed. HENT: Head: Normocephalic and atraumatic. Mouth/Throat: Comments: There is trismus present. Eyes: Pupils: Pupils are equal, round, and reactive to light. Neck: Comments: There is right sided neck swelling. Cardiovascular: Rate and Rhythm: Normal rate and regular rhythm. Pulmonary: Effort: Pulmonary effort is normal. No respiratory distress. Breath sounds: Normal breath sounds. Abdominal: Palpations: Abdomen is soft. There is no mass. Tenderness: There is no abdominal tenderness. There is no guarding or rebound. Skin: General: Skin is warm and dry. Neurological: Mental Status: She is alert and oriented to person, place, and time. ED COURSE & MEDICAL DECISION MAKING Medical Decision Making Stent obstruction vs trismus, plan consult ENT On 04/02/2023 I saw and examined the patient. I discussed the history and examination with the resident and agree with the plan of care. Amount and/or Complexity of Data Reviewed External Data Reviewed: radiology and notes. Risk Decision regarding hospitalization. Danny Ly MD 04/02/232013 Patient reporting that she is having a reaction to dilaudid that was given to her earlier. Patient diaphoretic, VSS. O2 sat 91 on room air, patient family stating that she cannot open her mouth to vomit. Suction set up at bedside Patient had a stent placed on Monday at the [facility]. Arrives from [facility] for further evaluation of blocked stent. documented in this encounter [facility] 04-03-2023 Emergency department Note Bed: 1145P Expected date: Expected time: Means of arrival: Comments: Valdivia in [facility] 04-02-2023 Progress note Formatting of t his note is different from the original. DEPARTMENT OF EMERGENCY MEDICINE CHIEF COMPLAINT No chief complaint on file. HISTORY OF PRESENT ILLNESS Chelo Valdivia is a 63 y.o. female was appropriately risk stratified for observation level of care and was placed on the [facility] General Observation Protocol protocol. Symptoms started with one day of right neck pain, swelling, and trismus. s/p sialdenoscopy 03/31/23 Personal, surgical, family, and social history reviewed with patient. REVIEW OF SYSTEMS Review of Systems Musculoskeletal: Positive for neck pain. All other systems reviewed and are negative. All Other Systems Were Reviewed And Negative Unless Otherwise Noted PAST MEDICAL HISTORY Past Medical History Reviewed, Contributory Findings Include: See below and above in HPI, no other endorsed PMH per patient. Past Medical History: Diagnosis Date Delayed emergence from anesthesia Fibromyalgia GERD (gastroesophageal reflux disease) IBS (irritable bowel syndrome) SURGICAL HISTORY Past Surgical History Reviewed, Contributory Findings Include: No other endorsed surgical history per patient. Past Surgical History: Procedure Laterality Date CHOLECYSTECTOMY PARTIAL THYROIDECTOMY SHOULDER SURGERY Bilateral MEDICATIONS GIVEN IN THE ED Medications dexAMETHasone (DECADRON) injection 8 mg (8 mg Intravenous Given 04/02/232224) HYDROmorphone (DILAUDID) injection 1 mg (1 mg Intravenous Given 04/02/23 184) Ondansetron 4mg/2ml (ZOFRAN) injection 4 mg (4 mg Intravenous Given 04/02/23 190) Lactated ringers IV solution 1,000 mL (0 mL Intravenous Stopped 04/02/232223) Prochlorperazine (COMPAZINE) injection 10 mg (10 mg Intravenous Given 04/02/232126) Ampicillin-Sulbactam Sodium (UNASYN) 3 g in sodium chloride 0.9% (MB PLUS) 100 mL (total volume) IVPB (0 g Intravenous Stopped 04/02/23 2311) ALLERGIES Allergies Allergen Reactions Benzocaine, Topical Rash All topical ivis *Seasonal No known or endorsed food or drug allergies per patient. FAMILY HISTORY Family History Reviewed, Contributory Findings Include: No other endorsed family history per patient. Family History Problem Relation Age of Onset Cancer- Other Mother blood cancer Dementia Father SOCIAL HISTORY Social History Reviewed, Contributory Findings Include: No other endorsed social history per patient. Social History Socioeconomic History Marital status: Spouse name: Not on file Number of children: Not on file Years of education: Not on file Highest education level: Not on file Occupational History Not on file Tobacco Use Smoking status: Never Smokeless tobacco: Never Vaping Use Vaping Use: Never used Substance and Sexual Activity Alcohol use: Yes Alcohol/week: 7.0 standard drinks of alcohol Types: 7 Glasses of wine per week Drug use: Never Sexual activity: Not on file Other Topics Concern Not on file Social History Narrative Not on file Social Determinants of Health Financial Resource Strain: Not on file Food Insecurity: Not on file Transportation Needs: Not on file Physical Activity: Not on file Stress: Not on file Social Connections: Not on file Intimate Partner Violence: Not on file Housing Stability: Not on file PHYSICAL EXAM BP 143/79 Pulse 87 Temp 98.1 F (36.7 C) (Oral) Resp 19 Ht 1.727 m (5' 8 ) SpO2 93% BMI 26.30 kg/m Smoking Status Never Physical Exam Vitals and nursing note reviewed. Constitutional: General: She is not in acute distress. Appearance: Normal appearance. She is not ill-appearing, toxic-appearing or diaphoretic. HENT: Head: Normocephalic and atraumatic. Jaw: Trismus and swelling (right sided) present. Eyes: Extraocular Movements: Extraocular movements intact. Conjunctiva/sclera: Conjunctivae normal. Pupils: Pupils are equal, round, and reactive to light. Cardiovascular: Rate and Rhythm: Normal rate and regular rhythm. Heart sounds: Normal heart sounds. Pulmonary: Effort: Pulmonary effort is normal. Breath sounds: Normal breath sounds. Abdominal: Palpations: Abdomen is soft. Tenderness: There is no abdominal tenderness. Musculoskeletal: General: Normal range of motion. Cervical back: Normal range of motion and neck supple. Tenderness (right sided ) present. Skin: General: Skin is warm and dry. Capillary Refill: Capillary refill takes less than 2 seconds. Findings: No rash. Neurological: General: No focal deficit present. Mental Status: She is oriented to person, place, and time. Psychiatric: Mood and Affect: Mood normal. Behavior: Behavior normal. EDOU COURSE & MEDICAL DECISION MAKING Risk stratification appropriate for observation level of care. Patient was placed in EDOU on the protocol. Patient age greater than 64y/o? NO DDx includes: sialoadenitis, PROPERTY ECONOMIST, cellulitis, I reviewed the patients' medical records and nursing notes and noted their allergies, past medical history, and previous visits. The patient received the following interventions in the ED to date: IV Unasyn, IV dexamethasone. ENT consultation On reassessment the patient's response to the interventions was good While in the EDOU we will continue to check, monitor and reassess patient and alter our plan as clinically appropriate. I have discussed this plan of care with Dr. Lopez, the [facility] attending physician, who is in agreement with this plan. This is a non-shared visit on 04/02/2023. Medical Decision Making Chelo Valdivia is a 63 y.o. female with history of fibromyalgia, GERD, IBS s/p sialdenoscopy 03/31/23, presenting with one day of right neck pain, swelling, and trismus. She was seen by ENT who thinks she's having sialoadenitis with inflammation (and maybe some mild retrograde infection) following her procedure. They scoped her and removed one of her stents. They are not concerned about her airway. They would like her to be NPO, treated with fluids, dexamethasone, and unasyn--with plan to obs for 12 hours and then re-assess in the morning, (with admission if she hasn't improved by the morning). Risk Prescription drug management. Parenteral controlled substances. Decision regarding hospitalization. Electronically signed by: ELEANOR Paredes, 04/02/2023 11:12 PM [facility] Work Phone: 04-02-2023 Miscellaneous Notes DEPARTMENT OF EMERGENCY MEDICINE CHIEF COMPLAINT No chief complaint on file. HISTORY OF PRESENT ILLNESS Chelo Valdivia is a 63 y.o. female was appropriately risk stratified for observation level of care and was placed on the [facility] General Observation Protocol protocol. Symptoms started with one day of right neck pain, swelling, and trismus. s/p sialdenoscopy 03/31/23 Personal, surgical, family, and social history reviewed with patient. REVIEW OF SYSTEMS Review of Systems Musculoskeletal: Positive for neck pain. All other systems reviewed and are negative. All Other Systems Were Reviewed And Negative Unless Otherwise Noted PAST MEDICAL HISTORY Past Medical History Reviewed, Contributory Findings Include: See below and above in HPI, no other endorsed PMH per patient. Past Medical History: Diagnosis Date Delayed emergence from anesthesia Fibromyalgia GERD (gastroesophageal reflux disease) IBS (irritable bowel syndrome) SURGICAL HISTORY Past Surgical History Reviewed, Contributory Findings Include: No other endorsed surgical history per patient. Past Surgical History: Procedure Laterality Date CHOLECYSTECTOMY PARTIAL THYROIDECTOMY SHOULDER SURGERY Bilateral MEDICATIONS GIVEN IN THE ED Medications dexAMETHasone (DECADRON) injection 8 mg (8 mg Intravenous Given 04/02/232224) HYDROmorphone (DILAUDID) injection 1 mg (1 mg Intravenous Given 04/02/231843) Ondansetron 4mg/2ml (ZOFRAN) injection 4 mg (4 mg Intravenous Given 04/02/231906) Lactated ringers IV solution 1,000 mL (0 mL Intravenous Stopped 04/02/232223) Prochlorperazine (COMPAZINE) injection 10 mg (10 mg Intravenous Given 04/02/232126) Ampicillin-Sulbactam Sodium (UNASYN) 3 g in sodium chloride 0.9% (MB PLUS) 100 mL (total volume) IVPB (0 g Intravenous Stopped 04/02/232310) ALLERGIES Allergies Allergen Reactions Benzocaine, Topical Rash All topical ivis *Seasonal No known or endorsed food or drug allergies per patient. FAMILY HISTORY Family History Reviewed, Contributory Findings Include: No other endorsed family history per patient. Family History Problem Relation Age of Onset Cancer- Other Mother blood cancer Dementia Father SOCIAL HISTORY Social History Reviewed, Contributory Findings Include: No other endorsed social history per patient. Social History Socioeconomic History Marital status: Spouse name: Not on file Number of children: Not on file Years of education: Not on file Highest education level: Not on file Occupational History Not on file Tobacco Use Smoking status: Never Smokeless tobacco: Never Vaping Use Vaping Use: Never used Substance and Sexual Activity Alcohol use: Yes Alcohol/week: 7.0 standard drinks of alcohol Types: 7 Glasses of wine per week Drug use: Never Sexual activity: Not on file Other Topics Concern Not on file Social History Narrative Not on file Social Determinants of Health Financial Resource Strain: Not on file Food Insecurity: Not on file Transportation Needs: Not on file Physical Activity: Not on file Stress: Not on file Social Connections: Not on file Intimate Partner Violence: Not on file Housing Stability: Not on file PHYSICAL EXAM BP 143/79 Pulse 87 Temp 98.1 F (36.7 C) (Oral) Resp 19 Ht 1.727 m (5' 8 ) SpO2 93% BMI 26.30 kg/m Smoking Status Never Physical Exam Vitals and nursing note reviewed. Constitutional: General: She is not in acute distress. Appearance: Normal appearance. She is not ill-appearing, toxic-appearing or diaphoretic. HENT: Head: Normocephalic and atraumatic. Jaw: Trismus and swelling (right sided) present. Eyes: Extraocular Movements: Extraocular movements intact. Conjunctiva/sclera: Conjunctivae normal. Pupils: Pupils are equal, round, and reactive to light. Cardiovascular: Rate and Rhythm: Normal rate and regular rhythm. Heart sounds: Normal heart sounds. Pulmonary: Effort: Pulmonary effort is normal. Breath sounds: Normal breath sounds. Abdominal: Palpations: Abdomen is soft. Tenderness: There is no abdominal tenderness. Musculoskeletal: General: Normal range of motion. Cervical back: Normal range of motion and neck supple. Tenderness (right sided ) present. Skin: General: Skin is warm and dry. Capillary Refill: Capillary refill takes less than 2 seconds. Findings: No rash. Neurological: General: No focal deficit present. Mental Status: She is oriented to person, place, and time. Psychiatric: Mood and Affect: Mood normal. Behavior: Behavior normal. EDOU COURSE & MEDICAL DECISION MAKING Risk stratification appropriate for observation level of care. Patient was placed in EDOU on the protocol. Patient age greater than 64y/o? NO DDx includes: sialoadenitis, PROPERTY ECONOMIST, cellulitis, I reviewed the patients' medical records and nursing notes and noted their allergies, past medical history, and previous visits. The patient received the following interventions in the ED to date: IV Unasyn, IV dexamethasone. ENT consultation On reassessment the patient's response to the interventions was good While in the EDOU we will continue to check, monitor and reassess patient and alter our plan as clinically appropriate. I have discussed this plan of care with Dr. Lopez, the EDOU attending physician, who is in agreement with this plan. This is a non-shared visit on 04/02/2023. Medical Decision Making Chelo Valdivia is a 63 y.o. female with history of fibromyalgia, GERD, IBS s/p sialdenoscopy 03/31/23, presenting with one day of right neck pain, swelling, and trismus. She was seen by ENT who thinks she's having sialoadenitis with inflammation (and maybe some mild retrograde infection) following her procedure. They scoped her and removed one of her stents. They are not concerned about her airway. They would like her to be NPO, treated with fluids, dexamethasone, and unasyn--with plan to obs for 12 hours and then re-assess in the morning, (with admission if she hasn't improved by the morning). Risk Prescription drug management. Parenteral controlled substances. Decision regarding hospitalization. Electronically signed by: ELEANOR Paredes, 04/02/2023 11:12 PM documented in this encounter [facility] 04-02-2023 Physician Emergency department Note dEPARTMENT of Emergency Medicine CHIEF COMPLAINT No chief complaint on file. IDALIA Valdivia is a 63 y.o. female with history of fibromyalgia, GERD, IBS s/p sialdenoscopy 03/31/[address] Cheng. She woke up this morning around 2 am with right neck pain, swelling, and pain opening her mouth. She called ENT health concierge this morning reporting trismus, difficulty swallowing secretions, intermittent SOB due to choking on secretions, odonyphagia, and hoarseness. She denies fever/chills. She has not been able to eat since yesterday and has not had much to drink today due to pain opening her mouth and swallowing. She was instructed to go to nearest ED in [place], as they live 90 min away. Per pt report, while there she received fluids, toradol, and CT scan obtained. CT scan there showed submandibular edema, duct obstruction, and laryngeal edema. She was subsequently transferred here for evaluation of possible stent obstruction. REVIEW OF SYSTEMS Review of Systems Constitutional: Negative for chills and fever. HENT: Positive for mouth and neck pain. Positive for hoarseness, voice change. Positive for difficulty opening her mouth, swallowing secretions. Positive for right sided neck swelling. Respiratory: Negative for cough and wheezing. Cardiovascular: Negative for chest pain. Gastrointestinal: Negative for constipation and diarrhea. PAST MEDICAL HISTORY Past Medical History: Diagnosis Date Delayed emergence from anesthesia Fibromyalgia GERD (gastroesophageal reflux disease) IBS (irritable bowel syndrome) SURGICAL HISTORY Past Surgical History: Procedure Laterality Date CHOLECYSTECTOMY PARTIAL THYROIDECTOMY SHOULDER SURGERY Bilateral CURRENT MEDICATIONS Current Facility-Administered Medications Medication Dose Route Frequency Provider Last Rate Last Admin Ampicillin-Sulbactam Sodium (UNASYN) 3 g in sodium chloride 0.9% (MB PLUS) 100 mL (total volume) IVPB 3 g Intravenous Once Jonn Berman MD dexAMETHasone (DECADRON) injection 8 mg 8 mg Intravenous Q8H Jonn Berman MD Current Outpatient Medications Medication Sig Dispense Refill Amoxicillin-clavulanate 875-125 MG tablet Take 1 tablet by mouth every 12 hours for 7 days. 14 tablet 0 Ascorbic Acid Buffered (Buffered Vitamin C) 1000 MG capsule Take 1,000 mg by mouth daily. Calcium-Magnesium (JOHN-MAG PO) Take by mouth 3 times daily. Cholecalciferol (Vitamin D3) 50 MCG (2000 UT) tablet Take 1 tablet by mouth daily. cloNIDine 0.1 MG tablet Take 1 tablet by mouth 2 times daily as needed. Cyclobenzaprine 10 MG tablet Take 1 tablet by mouth 3 times daily as needed. Dicyclomine 20 MG tablet Take 1 tablet by mouth 4 times daily. DULoxetine [address] Particles capsule DR Take 1 capsule by mouth daily. HERBAL PRODUCT Take by mouth daily. Cataplex E and Symplex F HERBAL PRODUCT Take by mouth daily. Trace minerals hydroCODone-acetaminophen 5-325 MG tablet Take 1 tablet by mouth every 6 hours as needed for Moderate Pain or Severe Pain for up to 7 days. 8 tablet 0 Lysine HCl (L-Formula Lysine HCl) 500 MG tablet Take 1 tablet by mouth daily. Multiple Vitamins-Minerals (OCUVITE EXTRA PO) Take by mouth. pantoprazole [address] tablet DR Take 1 tablet by mouth 2 times daily. Probiotic Product (PROBIOTIC PO) Take by mouth daily. ALLERGIES Allergies Allergen Reactions Benzocaine, Topical Rash All topical ivis *Seasonal FAMILY HISTORY Family History Problem Relation Age of Onset Cancer- Other Mother blood cancer Dementia Father SOCIAL HISTORY Social History Socioeconomic History Marital status: Spouse name: Not on file Number of children: Not on file Years of education: Not on file Highest education level: Not on file Occupational History Not on file Tobacco Use Smoking status: Never Smokeless tobacco: Never Vaping Use Vaping Use: Never used Substance and Sexual Activity Alcohol use: Yes Alcohol/week: 7.0 standard drinks of alcohol Types: 7 Glasses of wine per week Drug use: Never Sexual activity: Not on file Other Topics Concern Not on file Social History Narrative Not on file Social Determinants of Health Financial Resource Strain: Not on file Food Insecurity: Not on file Transportation Needs: Not on file Physical Activity: Not on file Stress: Not on file Social Connections: Not on file Intimate Partner Violence: Not on file Housing Stability: Not on file PHYSICAL EXAM BP 143/79 Pulse 87 Temp 98.1 F (36.7 C) (Oral) Resp 19 Ht 1.727 m (5' 8 ) SpO2 93% BMI 26.30 kg/m Smoking Status Never Physical Exam HENT: Head: Normocephalic and atraumatic. Nose: No congestion or rhinorrhea. Mouth/Throat: Mouth: Mucous membranes are dry. Comments: Positive for trismus, right sided submandibular tenderness, tenseness, and swelling. No overlying erythema, fluctuance, or induration. Eyes: Extraocular Movements: Extraocular movements intact. Conjunctiva/sclera: Conjunctivae normal. Cardiovascular: Rate and Rhythm: Normal rate and regular rhythm. Heart sounds: Normal heart sounds. No murmur heard. No friction rub. No gallop. Pulmonary: Effort: Pulmonary effort is normal. Breath sounds: Normal breath sounds. No wheezing, rhonchi or rales. Abdominal: General: There is no distension. Musculoskeletal: General: Normal range of motion. Skin: General: Skin is warm. Neurological: General: No focal deficit present. Mental Status: She is alert. ED COURSE & MEDICAL DECISION MAKING ED Course as of 04/02/23 2255 Sun Apr 02, 2023 225 63 y/o female 3 days s/p bilateral anibal's gland stent placement for tx of sialoadenitis. Presenting with right sided neck swelling, pain, and trismus. Scoped by ENT. Found to have sialoadenitis with possible retrograde infection. Admitting to obs for overnight evaluation. Will receive dex 8mg Q8H, unasyn, fluids, NPO. ENT to assess for need for admission in the a.m. Medical Decision Making Chelo Valdivia is a 63 y.o. female with history of fibromyalgia, GERD, IBS s/p sialdenoscopy 03/31/23, presenting with one day of right neck pain, swelling, and trismus. Differential diagnosis includes sialoadenitis vs stent obstruction vs infection. ENT consulted for further management. Pt was scoped at bedside, with findings of laryngeal wall edema and larygnea/false vocal cord edema. Per ENT's recommendations, will administer steroids with dexamethasone 8 mg Q8H, IV unasyn, fluids, and stent removal. ENT to re-evaluate in 12 hours and assess for improvement vs need for admission at that time. Risk Prescription drug management. Jonn Berman MD Resident 04/02/239 [facility] Work Phone: 04-02-2023 Physician Emergency department Note dEPARTMENT of Emergency Medicine CHIEF COMPLAINT No chief complaint on file. HPI Chelo Valdivia is a 63 y.o. female who presents with history of fibromyalgia, GERD, IBS, 2 days post anibal's duct dilation complains of right neck swelling and difficulty opening her mouth. There is no associated fever. There are no aggravating or relieving factors. REVIEW OF SYSTEMS Review of Systems PAST MEDICAL HISTORY Past Medical History: Diagnosis Date Delayed emergence from anesthesia Fibromyalgia GERD (gastroesophageal reflux disease) IBS (irritable bowel syndrome) SURGICAL HISTORY Past Surgical History: Procedure Laterality Date CHOLECYSTECTOMY PARTIAL THYROIDECTOMY SHOULDER SURGERY Bilateral CURRENT MEDICATIONS No current facility-administered medications for this encounter. Current Outpatient Medications Medication Sig Dispense Refill Amoxicillin-clavulanate 875-125 MG tablet Take 1 tablet by mouth every 12 hours for 7 days. 14 tablet 0 Ascorbic Acid Buffered (Buffered Vitamin C) 1000 MG capsule Take 1,000 mg by mouth daily. Calcium-Magnesium (JOHN-MAG PO) Take by mouth 3 times daily. Cholecalciferol (Vitamin D3) 50 MCG (2000 UT) tablet Take 1 tablet by mouth daily. cloNIDine 0.1 MG tablet Take 1 tablet by mouth 2 times daily as needed. Cyclobenzaprine 10 MG tablet Take 1 tablet by mouth 3 times daily as needed. Dicyclomine 20 MG tablet Take 1 tablet by mouth 4 times daily. DULoxetine [address] Particles capsule DR Take 1 capsule by mouth daily. HERBAL PRODUCT Take by mouth daily. Cataplex E and Symplex F HERBAL PRODUCT Take by mouth daily. Trace minerals hydroCODone-acetaminophen 5-325 MG tablet Take 1 tablet by mouth every 6 hours as needed for Moderate Pain or Severe Pain for up to 7 days. 8 tablet 0 Lysine HCl (L-Formula Lysine HCl) 500 MG tablet Take 1 tablet by mouth daily. Multiple Vitamins-Minerals (OCUVITE EXTRA PO) Take by mouth. pantoprazole [address] tablet DR Take 1 tablet by mouth 2 times daily. Probiotic Product (PROBIOTIC PO) Take by mouth daily. ALLERGIES Allergies Allergen Reactions Benzocaine, Topical Rash All topical ivis *Seasonal FAMILY HISTORY Family History Problem Relation Age of Onset Cancer- Other Mother blood cancer Dementia Father SOCIAL HISTORY Social History Socioeconomic History Marital status: Spouse name: Not on file Number of children: Not on file Years of education: Not on file Highest education level: Not on file Occupational History Not on file Tobacco Use Smoking status: Never Smokeless tobacco: Never Vaping Use Vaping Use: Never used Substance and Sexual Activity Alcohol use: Yes Alcohol/week: 7.0 standard drinks of alcohol Types: 7 Glasses of wine per week Drug use: Never Sexual activity: Not on file Other Topics Concern Not on file Social History Narrative Not on file Social Determinants of Health Financial Resource Strain: Not on file Food Insecurity: Not on file Transportation Needs: Not on file Physical Activity: Not on file Stress: Not on file Social Connections: Not on file Intimate Partner Violence: Not on file Housing Stability: Not on file PHYSICAL EXAM BP 143/79 Pulse 87 Temp 98.1 F (36.7 C) (Oral) Resp 19 Ht 1.727 m (5' 8 ) SpO2 93% BMI 26.30 kg/m Smoking Status Never Physical Exam Constitutional: Appearance: She is well-developed. HENT: Head: Normocephalic and atraumatic. Mouth/Throat: Comments: There is trismus present. Eyes: Pupils: Pupils are equal, round, and reactive to light. Neck: Comments: There is right sided neck swelling. Cardiovascular: Rate and Rhythm: Normal rate and regular rhythm. Pulmonary: Effort: Pulmonary effort is normal. No respiratory distress. Breath sounds: Normal breath sounds. Abdominal: Palpations: Abdomen is soft. There is no mass. Tenderness: There is no abdominal tenderness. There is no guarding or rebound. Skin: General: Skin is warm and dry. Neurological: Mental Status: She is alert and oriented to person, place, and time. ED COURSE & MEDICAL DECISION MAKING Medical Decision Making Stent obstruction vs trismus, plan consult ENT On 04/02/2023 I saw and examined the patient. I discussed the history and examination with the resident and agree with the plan of care. Amount and/or Complexity of Data Reviewed External Data Reviewed: radiology and notes. Risk Decision regarding hospitalization. Danny Ly MD 04/02/232013 [facility] Work Phone: 04-02-2023 Emergency department Note Patient reporting that she is having a reaction to dilaudid that was given to her earlier. Patient diaphoretic, VSS. O2 sat 91 on room air, patient family stating that she cannot open her mouth to vomit. Suction set up at bedside [facility] 04-02-2023 Emergency department Note Patient had a stent placed on Monday at the [facility]. Arrives from [facility] for further evaluation of blocked [facility]. [facility] History of Presen t illness Narrative Patient's daughter has already filled and picked up oxycodone from the pharmacy. Was asked to switch to hydrocodone-acetaminophen (vicodin) because the patient does not tolerate oxycodone but does tolerate hydrocodone. I sent a prescription to her [facility] pharmacy and the PACU staff will return the oxycodone prescription to [facility]. The patient will not go home with both. documented in this encounter [facility] 03-31-2023 Nurse Note 0: Patient arrived to [facility] ASU from [facility] PACU via gurney. Vital signs taken and stable. Patient given drink and snacks. Family called to bedside. Patient assessed. 5: Reviewed anesthesia precautions, AVS, and scrips with patient and , questions and concerns answered. 1900: Paged ENT resident regarding home medications. Resident placed order for vicodin at [facility] pharmacy in [place]. Patient is not getting oxycodone prescription that was placed in original order. 1952: Patient meets [facility] discharge criteria and discharged per MD order to home. Patient taken by wheelchair by [employer]IM ROLLER OPERATOR to awaiting car. All belongings gathered with patient. Family/friend to drive patient home and care for patient 24 hours post-op. [facility] 03-31-2023 Miscellaneous Notes 0: Patient arrived to [facility] from [facility] PACU via gurney. Vital signs taken and stable. Patient given drink and snacks. Family called to bedside. Patient assessed. 1844: Reviewed anesthesia precautions, AVS, and scrips with patient and , questions and concerns answered. 1899: Paged ENT resident regarding home medications. Resident placed order for vicodin at [facility] in [place]. Patient is not getting oxycodone prescription that was placed in original order. 1952: Patient meets [facility] discharge criteria and discharged per MD order to home. Patient taken by wheelchair by [employer] RIM ROLLER OPERATOR to awaiting car. All belongings gathered with patient. Family/friend to drive patient home and care for patient 24 hours post-op. Page to Dr. Hawa Valdivia Pacu - please change discharge scripts to OP [facility] pharmacy. Thanks. [phone] documented in this encounter [facility] 03-31-2023 Nurse Note Page to Dr. Hawa Valdivia Pacu - please change discharge scripts to OP [facility] pharmacy. Thanks. [phone] [facility] Hospital Discharg e instructions Deyanira Van MD - 03/31/2023 4:41 PM EDT Post Operative Instructions Procedure: Sialoendoscopy Surgeon: Dr. Dwain Cheng This instruction sheet is designed to help you following surgery, and to answer many of the commonly asked questions. Please read the entire sheet carefully. Don t hesitate to call our office [phone] if you have a questions or concern. If the nurse cannot answer your questions, the doctor will return your call or you will be asked to come to the office. What to Expect Some pain and swelling Please call for redness of your skin, worsening pain, or fevers > 100.4 degrees. Home Care Please perform gland massage several times per day with warm compresses as needed for pain and swelling. Use sialogogues (such as sugar free sour candies) daily to encourage saliva flow. Ice packs can be used for pain and swelling. Please drink plenty of water to stay hydrated. Take your pain medication as directed. You may substitute tylenol or ibuprofen if pain is mild. Take your antibiotics as directed You have stents placed in bilateral floor of mouth that will be removed in 2 weeks during your follow up. Call the office if they fall out before your appointment. Safety Information For Giving Medications EACH TIME YOU GIVE A MEDICATION READ THE LABEL. Do not measure liquid with a kitchen spoon. There are pediatric measuring devices available at the pharmacy. Ask for one when you get your prescription filled. Use the exact amount ordered by your surgeon. If you have questions ask your pharmacist. Store all medications out of reach of children. Only use the oxycodone if needed for pain. Do not drive while taking this medication. Do not take if overly drowsy. Your First Follow-up Appointment Call the office [phone] for a follow up appointment in 2 weeks as recommended by Dr Cheng Important Phone Numbers [facility] [phone] [facility] Exhibits Manager (after hours questions, ask for ENT resident health concierge) [phone] Dr Cheng's office number documented in this encounter [facility] 03-31-2023 Nurse Surgical operation note Pt denies history of chemo and radiation. Pt reports 2 fusions in neck and metal in jaw. Denies history of seizures. [facility] 03-31-2023 Nurse Note Pt denies history of chemo and radiation. Pt reports 2 fusions in neck and metal in jaw. Denies history of seizures. 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 MRI Sialogram was completed today. History and review of systems is negative for changes since last visit. She is doing well. Patient endorses chronic dry mouth. Continues to have bilateral pain and swelling. Patient denies new symptoms such as dysphagia, odynophagia, otalgia, headaches, dyspnea, cough, facial pain, vision or hearing changes. Nursing documentation has been reviewed Past Medical History: Diagnosis Date Delayed emergence from anesthesia Fibromyalgia GERD (gastroesophageal reflux disease) IBS (irritable bowel syndrome) Past Surgical History: Procedure Laterality Date CHOLECYSTECTOMY PARTIAL THYROIDECTOMY SHOULDER SURGERY Bilateral Current Outpatient Medications Medication Sig Dispense Refill Ascorbic Acid Buffered (Buffered Vitamin C) 1000 MG capsule Take 1,000 mg by mouth daily. Calcium-Magnesium (JOHN-MAG PO) Take by mouth 3 times daily. Cholecalciferol (Vitamin D3) 50 MCG (2000 UT) tablet Take 1 tablet by mouth daily. cloNIDine 0.1 MG tablet Take 1 tablet by mouth 2 times daily as needed. Cyclobenzaprine 10 MG tablet Take 1 tablet by mouth 3 times daily as needed. Dicyclomine 20 MG tablet Take 1 tablet by mouth 4 times daily. DULoxetine [address] Particles capsule DR Take 1 capsule by mouth daily. HERBAL PRODUCT Take by mouth daily. Cataplex E and Symplex F HERBAL PRODUCT Take by mouth daily. Trace minerals Lysine HCl (L-Formula Lysine HCl) 500 MG tablet Take 1 tablet by mouth daily. Magnesium 250 MG tablet Take 1 tablet by mouth daily. pantoprazole [address] tablet DR Take 1 tablet by mouth 2 times daily. Probiotic Product (PROBIOTIC PO) Take by mouth daily. No current facility-administered medications for this visit. Allergies Allergen Reactions Benzocaine, Topical Rash All topical ivis Exam: BP 131/77 Pulse 97 Temp 97.2 F (36.2 C) (Temporal) Resp 20 Wt 80.5 kg (177 lb 8 oz) SpO2 97% BMI 27.80 kg/m Smoking Status Never Documented vital signs from today's visit reviewed. Physical exam including head and neck examination of the oral cavity, oropharynx, larynx, and hypopharynx including indirect mirror exam as well as inspection and palpation of the face, parotid and neck is unchanged and negative for new lesions, masses or lymphadenopathy. No active infection. Airway is adequate. +Bilat SMG and lingual salivary gland tender to palpation. Data: MRI Sialogram 03/07/23 Poor contrast follow through into oral cavity, obstruction leaving bilateral submandibular glands. Impression/Plan: Chelo Valdivia is a 63 y.o. 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 At this point I am recommending bilateral sialoendoscopy. Discussed the risks and benefits of the procedure and patient elected to proceed. -Case Request: bilateral submandibular sialoendoscopy [id number] -1 hr -obtain surgical clearance from PCP -RTC post-op Attestation: I interviewed and examined Chelo Valdivia with Deyanira Van M.D. ([facility] PGY-1 resident). I discussed the differential diagnosis and plan and reviewed all his notes. I agree with the documentation. I also reviewed the medication list, and social,family, medical, surgical and allergy history. 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 MRI Sialogram was completed today. History and review of systems is negative for changes since last visit. She is doing well. Patient endorses chronic dry mouth. Continues to have bilateral pain and swelling. Patient denies new symptoms such as dysphagia, odynophagia, otalgia, headaches, dyspnea, cough, facial pain, vision or hearing changes. Nursing documentation has been reviewed Past Medical History: Diagnosis Date Delayed emergence from anesthesia Fibromyalgia GERD (gastroesophageal reflux disease) IBS (irritable bowel syndrome) Past Surgical History: Procedure Laterality Date CHOLECYSTECTOMY PARTIAL THYROIDECTOMY SHOULDER SURGERY Bilateral Current Outpatient Medications Medication Sig Dispense Refill Ascorbic Acid Buffered (Buffered Vitamin C) 1000 MG capsule Take 1,000 mg by mouth daily. Calcium-Magnesium (JOHN-MAG PO) Take by mouth 3 times daily. Cholecalciferol (Vitamin D3) 50 MCG (2000 UT) tablet Take 1 tablet by mouth daily. cloNIDine 0.1 MG tablet Take 1 tablet by mouth 2 times daily as needed. Cyclobenzaprine 10 MG tablet Take 1 tablet by mouth 3 times daily as needed. Dicyclomine 20 MG tablet Take 1 tablet by mouth 4 times daily. DULoxetine [address] Particles capsule DR Take 1 capsule by mouth daily. HERBAL PRODUCT Take by mouth daily. Cataplex E and Symplex F HERBAL PRODUCT Take by mouth daily. Trace minerals Lysine HCl (L-Formula Lysine HCl) 500 MG tablet Take 1 tablet by mouth daily. pantoprazole [address] tablet DR Take 1 tablet by mouth 2 times daily. Probiotic Product (PROBIOTIC PO) Take by mouth daily. Magnesium 250 MG tablet Take 1 tablet by mouth daily. (Patient not taking: Reported on 03/07/2023) No current facility-administered medications for this visit. Allergies Allergen Reactions Benzocaine, Topical Rash All topical ivis Exam: BP 131/77 Pulse 97 Temp 97.2 F (36.2 C) (Temporal) Resp 20 Wt 80.5 kg (177 lb 8 oz) SpO2 97% BMI 27.80 kg/m Smoking Status Never Documented vital signs from today's visit reviewed. Physical exam including head and neck examination of the oral cavity, oropharynx, larynx, and hypopharynx including indirect mirror exam as well as inspection and palpation of the face, parotid and neck is unchanged and negative for new lesions, masses or lymphadenopathy. No active infection. Airway is adequate. +Bilat SMG and lingual salivary gland tender to palpation. Data: MRI Sialogram 03/07/23 Poor contrast follow through into oral cavity, obstruction leaving bilateral submandibular glands. Impression/Plan: Chelo Valdivia is a 63 y.o. 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 At this point I am recommending bilateral sialoendoscopy. Discussed the risks and benefits of the procedure and patient elected to proceed. -Case Request: bilateral submandibular sialoendoscopy [id number] -1 hr -obtain surgical clearance from PCP -RTC post-op Attestation: I interviewed and examined Chelo Valdivia with Deyanira Van M.D. ([facility] PGY-1 resident). I discussed the differential diagnosis and plan and reviewed all his notes. I agree with the documentation. I also reviewed the medication list, and social,family, medical, surgical and allergy history. documented in this encounter [facility] 03-07-2023 Instructions Candi Warren RN - 03/07/2023 10:15 AM EDT Parotitis- swelling of the Parotid Gland Lemon drops and other sialogogues (things that make you salivate) to stimulate saliva. Drink at least 8 glasses of water per day Warm compresses then Parotid (cheek) massage documented in this encounter [facility] 03-03-2023 Note Request received for second opinion consultation by Melodie Burt APRN-COLE. Please review outside slides. Preoperative Diagnosis: Tongue lesion. [facility] Diagnosis Sialadenitis- Primary Sialoadenitis Sialadenitis Sialoadenitis [facility] Diagnosis Sialadenitis Sialoadenitis Sialadenitis Sialoadenitis [facility] Diagnosis Sialadenitis- Primary Sialoadenitis Post-op pain Other acute postoperative pain [facility] Diagnosis History of salivary gland disease- Primary Personal history of other diseases of digestive system [facility] Diagnosis Sialadenitis- Primary Sialoadenitis [facility] Diagnosis Sialadenitis- Primary Sialoadenitis documented in this encounter [facility] Reason for Referral Specialty Diagnoses / Procedures Referred By Jerad hurst Referred To Contact Diagnoses Sialadenitis Procedures MRI SIALOGRAM IN MRI, FACE, NECK, COMBO Melodie Burt, RADIOLOGY PHYSICIAN ASSISTANT-CONTRACTOR [employer] [address] [place] [address] Referral ID Status Reason Start Date Expiration Date V isits Requested Visits Authorized [id number] New Request 02/16/2023 03/12/2024 1 1 Specialty Diagnoses / Procedures Referred By Jerad hurst Referred To Contact Social Work Diagnoses Sialadenitis Dwain Cheng MD [address] [place] [address] Referral ID Status Reason Start Date Expiration Date V isits Requested Visits Authorized [id number] New Request 03/07/2023 03/31/2024 1 1 Referral ID Status Reason Start Date Expiration Date Visits Re quested Visits Authorized [id number] Closed 02/16/2023 03/12/2024 1 1 Specialty Diagnoses / Procedures Referred By Jerad hurst Referred To Contact Procedures DVT/VTE RISK ASSESSMENT Dwain Cheng MD [address] [place] [address] Referral ID Status Reason Start Date Expiration Date V isits Requested Visits Authorized [id number] New Request 03/31/2023 04/24/2024 1 1 Advance Directives No Advanced Directives Records FoundLatest Code Status on File Code Status Date Activated Date Inactivated Comments Full Code 03/31/2023 10:01 AM Latest Code Status on File Code Status Date Activated Date Inactivated Comments Full Code 03/31/2023 10:01 AM Summary Purpose Family History No Family History Records Found Additional Source Comments Reason for Visit (unrecogniz ed section and content) Specialty Diagnoses / Procedures Referred By Jerad t Referred To Contact Otolaryngology Diagnoses NPT Ref: Og Hyde ph: [phone] f:[phone] Dx: Tongu lesion Path: Y Imaging: Y Req: Skylar Procedures NEW PATIENT W/ SCOPE Og Jason MD [address] [place] [address] Dwain Cheng MD [address] [place] [phone] Referral ID Status Reason Start Date Expiration Date Visits Re quested Visits Authorized [id number] Closed 02/16/2023 03/12/2024 1 1 Reason Comments Follow-up Specialty Diagnoses / Procedures Referred By Jerad hurst Referred To Contact Diagnoses Sialadenitis Procedures MRI SIALOGRAM IN MRI, FACE, NECK, COMBO Vala, Melodie A, RADIOLOGY PHYSICIAN ASSISTANT-CONTRACTOR [employer] [address] [place] [phone] Referral ID Status Reason Start Date Expiration Date Visits Re quested Visits Authorized [id number] Closed 02/16/2023 03/12/2024 1 1 Specialty Diagnoses / Procedures Referred By Jerad t Referred To Contact Diagnoses Sialadenitis Sialadenitis [K11.20] Procedures IN SALIVARY SURG UNLISTED PROC SIALOENDOSCOPY Dwain Cheng MD [address] [place] [phone] [facility] [address] [place] [address] Referral ID Status Reason Start Date Expiration Date Visits Re quested Visits Authorized [id number] 1 1 Specialty Diagnoses / Procedures Referred By Jerad t Referred To Contact Diagnoses Post-op blocked salivary duct [facility] [address] [place] [address] [facility] [address] [place] [address] Referral ID Status Reason Start Date Expiration Date Visits Re quested Visits Authorized [id number] 1 1 Reason Comments Post Op Visit Pt went to local ED after surgery. CT completed. Stents were removed. Reason Comments Follow-up Scheduled Active and Recently Administ ered Medications (unrecognized section and content) Continuous Medication Order 03/29/2023 03/30/2023 03/31/2023 Lactated ringers IV solution Intravenous, at 50 mL/hr, CONTINUOUS, Starting on Mon03/31/23 at 1015, Until Mon03/31/23 at 215, Pre-op/Pre-Proc 1018 ($$New Bag$$ - Provider: Meg Faria RN) Lactated ringers IV solution Intravenous, at 100 mL/hr, CONTINUOUS, Starting on Mon03/31/23 at 1900, Until Mon03/31/23 at 2155, Saline lock when tolerating oral intake and remove IV per [facility] protocol., Post-op/Post-Proc 1900 (Canceled Entry - Provider: System Discharge - Comment: Automatically canceled at discontinue of medication order) PRN Medication Order 03/29/2023 03/30/2023 03/31/2023 Acetaminophen (TYLENOL) tablet 650 mg 650 mg, Oral, EVERY 4 HOURS NEEDED, Starting on Mon03/31/23 at 1856, Until Mon03/31/23 at 215, Mild Pain, Maximum dose of acetaminophen is 4000 mg from all sources in 24 hours., Post-op/Post-Proc 1900 (Given - Provid er: Ivy Pastor RN) Ampicillin-Sulbactam Sodium (UNASYN) 3 g in sodium chloride 0.9% (MB PLUS) 100 mL (total volume) IVPB (COMPLETED) 3 g, Intravenous, Administer over 30 Minutes, EMAIL DEPLOYMENT SPECIALIST TO PROCEDURE, 1 dose, Starting on Mon03/31/23 at 1033, Until Discontinued, preop, Contains a penicillin., Pre-op/Pre-Proc 1528 ($$New Bag$$ - Provider: Juan Manuel Roberto MD) hydrALAZINE (APRESOLINE) injection 5 mg 5 mg, Intravenous, EVERY 15 MINUTES NEEDED, Starting on Mon03/31/23 at 1654, Until Mon03/31/23 at 2155, SBP > 160 mmHg, SECOND line HTN, For SBP > 160 Use if HR < 60. Administer over 2 minutes. May give a total of 20 mg while in PACU. Notify MD if BP still uncontrolled after 2 mg and no other antihypertensive agents are ordered., Recovery HYDROmorphone (DILAUDID) injection 0.5 mg 0.5 mg, Intravenous, EVERY 10 MINUTES NEEDED, 8 doses, Starting on Mon03/31/23 at 1653, Until Mon03/31/23 at 2154, Moderate Pain, Severe Pain, May give a total of 4mg in PACU., Recovery 1710 (Given - Provid er: Rosemarie Mensah RN)1725 (Given - Provider: Rosemarie Mensah RN) Ibuprofen (MOTRIN) tablet 400 mg 400 mg, Oral, EVERY 6 HOURS NEEDED, Starting on Mon03/31/23 at 1856, Until Mon03/31/23 at 2154, Mild Pain, Give with food, Post-op/Post-Proc Labetalol (NORMODYNE) injection 5 mg 5 mg, Intravenous, EVERY 15 MINUTES NEEDED, Starting on Mon03/31/23 at 1654, Until Mon03/31/23 at 2154, SBP > 160 mmHg with HR >60 bpm, FIRST line HTN. , For SBP > 160 Hold if HR < 60 and give SECOND line agent. May give a total of 20 mg while in PACU. If blood pressure uncontrolled after 20mg of labetalol administered, use second line agent or notify MD. For vials: labetalol should be treated as a SINGLE USE VIAL. Discard remaining contents after one use., Recovery Meperidine (DEMEROL) injection 12.5 mg 12.5 mg, Intravenous, EVERY 30 MINUTES NEEDED, 2 doses, Starting on Mon03/31/23 at 1654, Until Mon03/31/23 at 2154, Rigors, May give total of 2 doses while in PACU. Keep respiratory rate greater than 10., Recovery Ondansetron 4mg/2ml (ZOFRAN) injection 4 mg 4 mg, Intravenous, EVERY 4 HOURS NEEDED, Starting on Mon03/31/23 at 1856, Until Mon03/31/23 at 2154, Nausea / Vomiting, 1st line, Post-op/Post-Proc Ondansetron 4mg/2ml (ZOFRAN) injection 4 mg (COMPLETED) 4 mg, Intravenous, ONCE NEEDED, 1 dose, Starting on Mon03/31/23 at 1654, Until Mon03/31/23 at 2359, Nausea / Vomiting, SECOND line antiemetic, Do not administer within 6 hours of intra-operative dose., Recovery 1911 (Given - Provid er: Ivy Pastor RN) oxyCODONE (ROXICODONE) oral solution 5 mg(Linked Group 1) 5 mg, Oral, EVERY 4 HOURS NEEDED, Starting on Mon03/31/23 at 1856, Until Mon03/31/23 at 2155, Moderate Pain, Severe Pain, Post-op/Post-Proc oxyCODONE (ROXICODONE) tablet 5 mg(Linked Group 1) 5 mg, Oral, EVERY 4 HOURS NEEDED, Starting on Mon03/31/23 at 1856, Until Mon03/31/23 at 2155, Moderate Pain, Severe Pain, Post-op/Post-Proc Prochlorperazine (COMPAZINE) injection 5 mg 5 mg, Intravenous, EVERY 1 HOUR NEEDED, 2 doses, Starting on Mon03/31/23 at 1654, Until Mon03/31/23 at 2155, Nausea / Vomiting, FIRST Line antiemetic, Do not administer within 6 hours of intra-operative dose. For IV route: dilute dose with 10mL normal saline and give by slow IV push at a rate of 5mg/min. Maximum of 40mg/day., Recovery Linked Groups Order Group 1: oxyCODONE (ROXICODONE) tablet 5 mgJump to med 5 mg, Oral, EVERY 4 HOURS NEEDED, Starting on Mon03/31/23 at 1856, Until Mon03/31/23 at 2155, Moderate Pain, Severe Pain, Post-op/Post-Proc Or oxyCODONE (ROXICODONE) oral solution 5 mgJump to med 5 mg, Oral, EVERY 4 HOURS NEEDED, Starting on Mon03/31/23 at 1856, Until Mon03/31/23 at 2155, Moderate Pain, Severe Pain, Post-op/Post-Proc Scheduled Medication Order 04/01/2023 04/02/2023 04/03/2023 Ampicillin-Sulbactam Sodium (UNASYN) 3 g in sodium chloride 0.9% (MB PLUS) 100 mL (total volume) IVPB (COMPLETED) 3 g, Intravenous, Administer over 30 Minutes, ONCE, 1 dose, On Mon04/02/23 at 2200, Contains a penicillin. 2228 ($$New Bag$$ - Provider: Ara Gordon RN)2311 (Stopped - Provider: Ara Gordon RN) dexAMETHasone (DECADRON) injection 8 mg 8 mg, Intravenous, EVERY 8 HOURS, First dose on Mon04/02/23 at 2200, Until Discontinued 2224 (Given - Provider: Ara Gordon RN) 0517 (Given - Provider: Maxwell Strong RN)1349 (Given - Provider: Teagan Wheeler RN) HYDROmorphone (DILAUDID) injection 1 mg (COMPLETED) 1 mg, Intravenous, ONCE, 1 dose, On Mon04/02/23 at 1900 1844 (Given - Provider: Justine Chiang, KELSIE) Ketorolac (TORADOL) injection 15 mg (COMPLETED) 15 mg, Intravenous, ONCE, 1 dose, On Mon04/03/23 at 0900 0837 (Given - Provid er: Katiuska Jack RN) Lactated ringers IV solution 1,000 mL (COMPLETED) 1,000 mL, Intravenous, ONCE, 1 dose, On Mon04/02/23 at 2115, Fluid Bolus 2111 ($$New Bag$$ - Provider: Ara Gordon RN)222 (Stopped - Provider: Ara Gordon RN) Ondansetron 4mg/2ml (ZOFRAN) injection 4 mg (COMPLETED) 4 mg, Intravenous, ONCE, 1 dose, On Mon04/02/23 at 1945 1907 (Given - Provider: Justine Chiang RN) Prochlorperazine (COMPAZINE) injection 10 mg (COMPLETED) 10 mg, Intravenous, ONCE, 1 dose, On Mon04/02/23 at 2200, For IV route: dilute dose with 10mL normal saline and give by slow IV push at a rate of 5mg/min. Maximum of 40mg/day. 2126 (Given - Provider: Ara Gordon RN) Sodium chloride 0.9% IV solution 500 mL (COMPLETED) 500 mL, Intravenous, ONCE, 1 dose, On Mon04/03/23 at 0145, Give bolus. For hydration 0117 ($$New Bag$$ - Provider: Maxwell Strong RN)0330 (Stopped - Provider: Katiuska Jack RN) Care Teams (unrecognized sec tion and content) Distance Learning Coordinator Relationship Specialty Start Date End Date Noelle Sandoval MD [address] [place] [phone] PCP - [facility] 04/02/23 Distance Learning Coordinator Relationship Specialty Start Date End Date Noelle Sandoval MD [address] [place] [phone] PCP - [facility] 04/02/23 INFORMATION SOURCE (unrecogn ized section and content) FOR RECORDS PERTAINING TO PATIENTS WHO ARE OR HAVE BEEN ENROLLED IN A CHEMICAL DEPENDENCY/SUBSTANCEABUSE PROGRAM, SOME INFORMATION MAY BE OMITTED. This clinical summary was aggregated from multiple sources. Caution should be exercised in using it in the provision of clinical care. This summary normalizes information from multiple sources, and as a consequence, information in this document may materially change the coding, format and clinical context of patient data. In addition, data may be omitted in some cases. CLINICAL DECISIONS SHOULD BE BASED ON THE PRIMARY CLINICAL RECORDS. [facility] Agent [facility]. provides no warranty or guarantee of the accuracy or completeness of information in this document.
[2023-08-10 18:36] LABS: Hepatitis B Surface Antigen Non-Reactive (Nonreactive)
== END | disposition home or self-care (01) ==
LOC: MTLAB 15:33
PROVIDERS: PCP Family Medicine; Referring Provider Physician Assistant Medical; Visit Provider Physician Assistant Medical
DX: M31.0 Hypersensitivity angiitis (principal)
CPT/HCPCS: 36415; 87340

== ENCOUNTER → 2023-10-02 | Outpatient (CLI) | payer BC, SELFPAY ==
[2023-10-02 15:37] LABS: Absolute Lymphocyte Count 2.09 X10^3/uL (0.83-4.51); Absolute Neutrophil Count 2.6 X10^3/uL (2.0-7.7); Basophil# 0.05 X10^3/uL; Basophil% 0.9 % (0-1); Eosinophil# 0.41 X10^3/uL; Hematocrit 42.9 % (37-47); Hemoglobin 14.1 g/dL (12.0-15.0); Lymphocyte # 2.09 X10^3/ul (0.83-4.51); Lymphocyte % 35.8 % (19-41); Mean Corp Hgb Conc 32.9 g/dL (32-36); Mean Corpuscular Hgb 28.9 pg (27.0-32.0); Mean Corpuscular Volume 87.9 fL (81-99); Monocyte# 0.69 X10^3/uL; Monocyte% 11.8 % (0-10); NRBC Flagged by Analyzer 0 % (0-5); Neutrophil # 2.58 X10^3/uL (2.7-7.7); Neutrophil % 44.3 % (47-70); Platelet Count 332 K/mm3 (150-450); RBC Distribution Width CV 12.4 % (11.6-14.6); RBC Distribution Width SD 39.8 fl (35.1-43.9); Red Blood Count 4.88 M/mm3 (4.2-5.4); White Blood Count 5.8 K/mm3 (4.4-11.0)
[2023-10-02 16:08] LABS: Erythrocyte Sedimentation Rate 3 mm/hr (0-30)
[2023-10-02 16:25] LABS: ALB/GLOB Ratio 1.2 RATIO (0.9-2.4); AST(SGOT) 10 U/L (15-37); Alanine Aminotransfer ALT/SGPT 35 U/L (13-56); Albumin, Serum 3.7 g/dL (3.2-5.0); Alkaline Phosphatase 83 U/L (45-117); Anion Gap 5 (5-15); BUN 17 mg/dL (7-18); BUN/Creat Ratio 24.6 RATIO (10-20); CRP 3.54 mg/L (0.0-3.0); Calcium,Total 8.8 mg/dL (8.5-10.1); Chloride 107 mmol/L (98-107); Creatinine, Serum 0.69 mg/dL (0.55-1.02); EST Glomerular Filtration Rate 91 mL/min (>60); Est Glom Filt Rate - Afr Amer 110 mL/min (>60); Globulin 3.2 g/dL (2.2-4.2); Glucose 97 mg/dL (74-106); Protein, Total 6.9 g/dL (6.4-8.2); Rheumatoid Factor < 10.0 IU/mL (<15); Sodium Level 138 mmol/L (136-145)
[2023-10-02 17:09] LABS: Hepatitis B Surface Antibody Reactive; Hepatitis B Surface Antigen Non-Reactive (Nonreactive); Hepatitis C Antibody Non-Reactive (Nonreactive)
[2023-10-04 13:08] LABS: CCP IgG Antibodies 2 units (0-19)
== END | disposition home or self-care (01) ==
PROVIDERS: PCP Family Medicine; Referring Provider Internal Medicine Rheumatology; Visit Provider Internal Medicine Rheumatology
DX: M06.4 Inflammatory polyarthropathy (principal); M35.00 Sjogren syndrome, unspecified; M79.7 Fibromyalgia
CPT/HCPCS: 36415; 80053; 85025; 85652; 86140; 86200; 86431; 86706; 86803; 87340

== ENCOUNTER → 2023-11-17 | Outpatient (CLI) | payer BC, SELFPAY ==
[2023-11-17 17:56] LABS: Absolute Neutrophil Count 2.5 X10^3/uL (2.0-7.7); Basophil# 0.07 X10^3/uL; Basophil% 1.2 % (0-1); Eosinophil# 0.52 X10^3/uL; Eosinophils% 8.7 % (0-5); Hematocrit 45.4 % (37-47); Hemoglobin 14.8 g/dL (12.0-15.0); Lymphocyte % 36.9 % (19-41); Mean Corp Hgb Conc 32.6 g/dL (32-36); Mean Corpuscular Hgb 28.1 pg (27.0-32.0); Mean Corpuscular Volume 86.3 fL (81-99); Mean Platelet Vol. 8.9 fl (6.2-12.0); Monocyte# 0.62 X10^3/uL; Monocyte% 10.4 % (0-10); NRBC Flagged by Analyzer 0 % (0-5); Neutrophil # 2.54 X10^3/uL (2.7-7.7); Neutrophil % 42.6 % (47-70); Platelet Count 353 K/mm3 (150-450); RBC Distribution Width CV 12.4 % (11.6-14.6); RBC Distribution Width SD 39.1 fl (35.1-43.9); Red Blood Count 5.26 M/mm3 (4.2-5.4)
[2023-11-17 18:24] LABS: ALB/GLOB Ratio 1.2 RATIO (0.9-2.4); AST(SGOT) 15 U/L (15-37); Alanine Aminotransfer ALT/SGPT 32 U/L (13-56); Albumin, Serum 3.9 g/dL (3.2-5.0); Alkaline Phosphatase 86 U/L (45-117); Anion Gap 5 (5-15); BUN 9 mg/dL (7-18); BUN/Creat Ratio 13.4 RATIO (10-20); Calcium,Total 8.7 mg/dL (8.5-10.1); Chloride 107 mmol/L (98-107); Creatinine, Serum 0.67 mg/dL (0.55-1.02); EST Glomerular Filtration Rate 94 mL/min (>60); Est Glom Filt Rate - Afr Amer 114 mL/min (>60); Globulin 3.3 g/dL (2.2-4.2); Glucose 95 mg/dL (74-106); Potassium 3.8 mmol/L (3.5-5.1); Protein, Total 7.2 g/dL (6.4-8.2); Sodium Level 139 mmol/L (136-145); Thyroid Stim Hormone (TSH) 0.82 uIU/mL (0.358-3.74)
== END | disposition home or self-care (01) ==
LOC: MTLAB 15:33
PROVIDERS: PCP Family Medicine; Referring Provider Family Medicine; Visit Provider Family Medicine
DX: F32.A Depression, unspecified (principal); F41.9 Anxiety disorder, unspecified; E03.9 Hypothyroidism, unspecified
CPT/HCPCS: 36415; 80053; 84443; 85025

== ENCOUNTER → 2023-12-15 | Outpatient (CLI) | payer BC, SELFPAY ==
--- NOTE | 2023-12-15 14:08 | RAD_ITS ---
INDICATION: Bronchitis EXAMINATION/TECHNIQUE: X-RAY - XR Chest 2 Views COMPARISON: FINDINGS: LINES/DEVICES: None. LUNGS: No consolidation, edema or effusion. No pneumothorax. MEDIASTINUM AND CARDIOVASCULAR STRUCTURES: Cardiac silhouette not enlarged. Central airways and mediastinal contour are unremarkable. BONES AND SOFT TISSUES: Unremarkable. RAD/Chest PA and Lateral IMPRESSION: No radiographic evidence of acute cardiopulmonary disease. Electronically Signed: Silverio Baugh DO at 19:54 EDT ,
== END | disposition home or self-care (01) ==
LOC: MTRAD 14:08
PROVIDERS: PCP Family Medicine; Referring Provider Family Medicine; Visit Provider Family Medicine
DX: J20.9 Acute bronchitis, unspecified (principal)
CPT/HCPCS: 71046

== ENCOUNTER → 2024-02-21 | Outpatient (CLI) | payer BC, SELFPAY ==
[2024-02-21 10:01] LABS: Absolute Lymphocyte Count 1.75 X10^3/uL (0.83-4.51); Absolute Neutrophil Count 2.7 X10^3/uL (2.0-7.7); Basophil# 0.06 X10^3/uL; Basophil% 1.1 % (0-1); Eosinophils% 7.3 % (0-5); Hematocrit 46.2 % (37-47); Hemoglobin 15.1 g/dL (12.0-15.0); Lymphocyte # 1.75 X10^3/ul (0.83-4.51); Mean Corp Hgb Conc 32.7 g/dL (32-36); Mean Corpuscular Hgb 28.3 pg (27.0-32.0); Mean Corpuscular Volume 86.7 fL (81-99); Mean Platelet Vol. 8.7 fl (6.2-12.0); Monocyte% 9.1 % (0-10); NRBC Flagged by Analyzer 0 % (0-5); Neutrophil # 2.74 X10^3/uL (2.7-7.7); Neutrophil % 50.1 % (47-70); Platelet Count 356 K/mm3 (150-450); RBC Distribution Width CV 12.6 % (11.6-14.6); RBC Distribution Width SD 39.8 fl (35.1-43.9); Red Blood Count 5.33 M/mm3 (4.2-5.4); White Blood Count 5.5 K/mm3 (4.4-11.0)
[2024-02-21 10:27] LABS: ALB/GLOB Ratio 1.1 RATIO (0.9-2.4); AST(SGOT) 11 U/L (15-37); Alanine Aminotransfer ALT/SGPT 25 U/L (13-56); Albumin, Serum 3.8 g/dL (3.2-5.0); Alkaline Phosphatase 85 U/L (45-117); Anion Gap 3 (5-15); BUN 15 mg/dL (7-18); BUN/Creat Ratio 19.9 RATIO (10-20); Calcium,Total 9.2 mg/dL (8.5-10.1); Chloride 106 mmol/L (98-107); Creatinine, Serum 0.75 mg/dL (0.55-1.02); EST Glomerular Filtration Rate 83 mL/min (>60); Est Glom Filt Rate - Afr Amer 100 mL/min (>60); Globulin 3.6 g/dL (2.2-4.2); Glucose 115 mg/dL (74-106); Potassium 3.7 mmol/L (3.5-5.1); Protein, Total 7.4 g/dL (6.4-8.2); Sodium Level 139 mmol/L (136-145)
== END | disposition home or self-care (01) ==
LOC: MTLAB 08:18
PROVIDERS: PCP Family Medicine; Referring Provider Internal Medicine Rheumatology; Visit Provider Internal Medicine Rheumatology
DX: M06.4 Inflammatory polyarthropathy (principal); Z79.899 Other long term (current) drug therapy; M79.7 Fibromyalgia; M35.00 Sjogren syndrome, unspecified
CPT/HCPCS: 36415; 80053; 85025

== ENCOUNTER → 2024-03-24 | Outpatient (CLI) | payer BC, SELFPAY | END | disposition home or self-care (01) | PROVIDERS: PCP Family Medicine; Referring Provider Nurse Practitioner Family; Visit Provider Nurse Practitioner Family | DX: N39.0 Urinary tract infection, site not specified (principal) | CPT/HCPCS: 87086; 87088 ==

== ENCOUNTER 2024-04-04 13:15 | Emergency (ER) | payer BC, SELFPAY ==
[2024-04-04 13:16] VITALS: BP 129/76; PULSE 80; RESP 16; TEMP 35.8; O2SAT 97; BMI 26.1
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
[2024-04-04] MEDS: Oxymetazoline 0.05% 1 SPRAY SPRAY.BTL 4 SPRAY NASAL (14:45)
--- NOTE | 2024-04-04 15:02 | ED.RN ---
pt calls out and expresses concern that she is coughing out clots.
[2024-04-04 15:15] VITALS: BP 132/84; PULSE 86; RESP 18; O2SAT 98
[2024-04-04] MEDS: oxyCODONE 5 MG Tablet PO (16:03)
[2024-04-04 16:18] VITALS: BP 132/84; PULSE 86; RESP 18; TEMP 36.3; O2SAT 98
== END 2024-04-04 16:19 | disposition home or self-care (01) ==
PROVIDERS: Emergency Provider Emergency Medicine; PCP Family Medicine; Visit Provider Emergency Medicine
DX: S06.0X0A Concussion without loss of consciousness, initial encounter (principal); S02.2XXA Fracture of nasal bones, initial encounter for closed fracture; R04.0 Epistaxis; Y04.8XXA Assault by other bodily force, initial encounter; Y93.F9 Activity, other caregiving; Z79.899 Other long term (current) drug therapy
CPT/HCPCS: 70450; 70486; 99283

== ENCOUNTER → 2024-05-21 | Outpatient (CLI) | payer BC, SELFPAY ==
[2024-05-21 17:47] LABS: Absolute Lymphocyte Count 2.08 X10^3/uL (0.83-4.51); Absolute Neutrophil Count 3.5 X10^3/uL (2.0-7.7); Basophil# 0.08 X10^3/uL; Basophil% 1.2 % (0-1); Eosinophil# 0.47 X10^3/uL; Eosinophils% 6.9 % (0-5); Hematocrit 41.5 % (37-47); Hemoglobin 13.6 g/dL (12.0-15.0); Lymphocyte # 2.08 X10^3/ul (0.83-4.51); Lymphocyte % 30.3 % (19-41); Mean Corp Hgb Conc 32.8 g/dL (32-36); Mean Corpuscular Hgb 28.6 pg (27.0-32.0); Mean Corpuscular Volume 87.4 fL (81-99); Mean Platelet Vol. 8.6 fl (6.2-12.0); Monocyte% 10.2 % (0-10); NRBC Flagged by Analyzer 0 % (0-5); Neutrophil # 3.51 X10^3/uL (2.7-7.7); Neutrophil % 51.1 % (47-70); Platelet Count 343 K/mm3 (150-450); RBC Distribution Width CV 12.4 % (11.6-14.6); RBC Distribution Width SD 39.9 fl (35.1-43.9); Red Blood Count 4.75 M/mm3 (4.2-5.4); White Blood Count 6.9 K/mm3 (4.4-11.0)
[2024-05-21 18:04] LABS: ALB/GLOB Ratio 1.2 RATIO (0.9-2.4); AST(SGOT) 8 U/L (15-37); Alanine Aminotransfer ALT/SGPT 21 U/L (13-56); Albumin, Serum 3.7 g/dL (3.2-5.0); Alkaline Phosphatase 86 U/L (45-117); Anion Gap 5 (5-15); BUN 18 mg/dL (7-18); BUN/Creat Ratio 25.7 RATIO (10-20); Calcium,Total 8.8 mg/dL (8.5-10.1); Chloride 107 mmol/L (98-107); EST Glomerular Filtration Rate 90 mL/min (>60); Est Glom Filt Rate - Afr Amer 108 mL/min (>60); Globulin 3.1 g/dL (2.2-4.2); Glucose 87 mg/dL (74-106); Potassium 3.9 mmol/L (3.5-5.1); Protein, Total 6.8 g/dL (6.4-8.2); Sodium Level 138 mmol/L (136-145)
== END | disposition home or self-care (01) ==
LOC: MTLAB 16:12
PROVIDERS: PCP Family Medicine; Referring Provider Internal Medicine Rheumatology; Visit Provider Internal Medicine Rheumatology
DX: M06.4 Inflammatory polyarthropathy (principal); M35.00 Sjogren syndrome, unspecified; M79.7 Fibromyalgia; Z79.899 Other long term (current) drug therapy
CPT/HCPCS: 36415; 80053; 85025

== ENCOUNTER → 2024-08-09 | Outpatient (CLI) | payer OTHER, SELFPAY ==
[2024-08-09 10:12] LABS: Absolute Lymphocyte Count 1.58 X10^3/uL (0.83-4.51); Absolute Neutrophil Count 2.2 X10^3/uL (2.0-7.7); Basophil# 0.06 X10^3/uL; Basophil% 1.2 % (0-1); Eosinophil# 0.41 X10^3/uL; Eosinophils% 8.5 % (0-5); Hematocrit 45.9 % (37-47); Hemoglobin 14.7 g/dL (12.0-15.0); Lymphocyte # 1.58 X10^3/ul (0.83-4.51); Lymphocyte % 32.7 % (19-41); Mean Corpuscular Hgb 27.7 pg (27.0-32.0); Mean Corpuscular Volume 86.4 fL (81-99); Mean Platelet Vol. 8.9 fl (6.2-12.0); Monocyte# 0.61 X10^3/uL; Monocyte% 12.6 % (0-10); NRBC Flagged by Analyzer 0 % (0-5); Neutrophil # 2.16 X10^3/uL (2.7-7.7); Neutrophil % 44.8 % (47-70); Platelet Count 320 K/mm3 (150-450); RBC Distribution Width CV 12.4 % (11.6-14.6); RBC Distribution Width SD 39.5 fl (35.1-43.9); Red Blood Count 5.31 M/mm3 (4.2-5.4); White Blood Count 4.8 K/mm3 (4.4-11.0)
[2024-08-09 10:47] LABS: AST(SGOT) 12 U/L (15-37); Alanine Aminotransfer ALT/SGPT 22 U/L (13-56); Albumin, Serum 3.6 g/dL (3.2-5.0); Alkaline Phosphatase 82 U/L (45-117); Anion Gap 5 (5-15); BUN 11 mg/dL (7-18); BUN/Creat Ratio 17.2 RATIO (10-20); Chloride 107 mmol/L (98-107); Creatinine, Serum 0.64 mg/dL (0.55-1.02); EST Glomerular Filtration Rate 99 mL/min (>60); Est Glom Filt Rate - Afr Amer 120 mL/min (>60); Globulin 3.5 g/dL (2.2-4.2); Glucose 100 mg/dL (74-106); Potassium 3.9 mmol/L (3.5-5.1); Protein, Total 7.1 g/dL (6.4-8.2); Sodium Level 139 mmol/L (136-145)
== END | disposition home or self-care (01) ==
LOC: MTLAB 08:37
PROVIDERS: PCP Family Medicine; Referring Provider Internal Medicine Rheumatology; Visit Provider Internal Medicine Rheumatology
DX: M06.4 Inflammatory polyarthropathy (principal); M79.7 Fibromyalgia; M35.00 Sjogren syndrome, unspecified; Z79.899 Other long term (current) drug therapy
CPT/HCPCS: 36415; 80053; 85025

== ENCOUNTER → 2024-08-16 | Outpatient (CLI) | payer OTHER, SELFPAY ==
--- NOTE | 2024-08-16 15:36 | BI_ITS ---
MAMMOGRAPHY - BILATERAL SCREENING REASON FOR EXAM: Female, 64 years old. Routine annual screening examination. PERTINENT HISTORY: Non-contributory. Prior left stereotactic breast biopsy. TECHNIQUE: Digital bilateral breast josé manuel (3D mammographic acquisition) in the CC and MLO projections. 2-D mediolateral oblique (MLO) and craniocaudad (CC) views of both breasts were obtained. CAD: Full Field Digital Mammography with Computer Added Detection was performed. COMPARISON: Comparison is made with prior study dated July 28, 2023 and January 01, 2021. FINDINGS: Breast Composition: There are scattered areas of fibroglandular density. There are no dominant masses or suspicious calcifications. A tissue clip marker is once again seen in the small nodular density in the deep upper midportion of the left breast. Stable small benign-appearing bilateral axillary lymph nodes. No other significant abnormalities are identified. There has been no significant change since the prior study. BI/SCRN MAMM (CAD)W/JOSÉ MANUEL BILAT IMPRESSION: Stable bilateral screening mammogram. Yearly follow-up mammogram recommended. (A) ASSESSMENT CATEGORY: BIRADS Category 2: Benign. A letter regarding these results will be sent to the patient by the facility within 30 days. Approximately 10% of breast cancers are not detected by mammography. A normal mammogram should not delay biopsy of a clinically suspicious abnormality. [id number] Electronically Signed: Patrice Glass MD at 8:48 EST ,
== END | disposition home or self-care (01) ==
LOC: OPBI 15:36
PROVIDERS: PCP Family Medicine; Referring Provider Family Medicine; Visit Provider Family Medicine
DX: Z12.31 Encounter for screening mammogram for malignant neoplasm of breast (principal)
CPT/HCPCS: 77063; 77067

== ENCOUNTER → 2025-02-06 | Outpatient (CLI) | payer OTHER, SELFPAY ==
[2025-02-06 12:30] LABS: Hematocrit 40.9 % (37-47); Hemoglobin 13.8 g/dL (12.0-15.0); Immature Granulocytes Count 0.010 X10^3/uL (0.0-0.0); Mean Corp Hgb Conc 33.7 g/dL (32-36); Mean Corpuscular Volume 86.8 fL (81-99); Mean Platelet Vol. 8.9 fl (6.2-12.0); NRBC Flagged by Analyzer 0 % (0-5); Platelet Count 322 K/mm3 (150-450); RBC Distribution Width CV 12.5 % (11.6-14.6); RBC Distribution Width SD 40.1 fl (35.1-43.9); Red Blood Count 4.71 M/mm3 (4.2-5.4); White Blood Count 5.6 K/mm3 (4.4-11.0)
[2025-02-06 16:07] LABS: AST(SGOT) 16 U/L (<=31); Alanine Aminotransfer ALT/SGPT 19 U/L (<=34); Albumin, Serum 4.0 g/dL (3.4-4.8); Alkaline Phosphatase 65 U/L (35-104); Anion Gap 8 (5-15); BUN 15 mg/dL (4-19); BUN/Creat Ratio 23.4 RATIO (10-20); Calcium,Total 8.6 mg/dL (7.6-11.0); Carbon Dioxide 25.0 mmol/L (21.0-32.0); Chloride 106 mmol/L (98-108); Globulin 2.2 g/dL (2.2-4.2); Glucose 125 mg/dL (70-99); Potassium 4.1 mmol/L (3.3-5.1)
== END | disposition home or self-care (01) ==
LOC: MTLAB 11:06
PROVIDERS: PCP Family Medicine; Referring Provider Internal Medicine Rheumatology; Visit Provider Internal Medicine Rheumatology
DX: M06.4 Inflammatory polyarthropathy (principal); M79.7 Fibromyalgia; M35.00 Sjogren syndrome, unspecified; Z79.899 Other long term (current) drug therapy
CPT/HCPCS: 36415; 80053; 85025

== ENCOUNTER → 2025-05-07 | Outpatient (CLI) | payer OTHER, SELFPAY ==
--- NOTE | 2025-05-07 10:21 | RAD_ITS ---
EXAM: XR Abdomen, 2 Views CLINICAL INDICATION: GASTRO-ESOPHAGEAL REFLUX DISEASE WITHOUT ESOPHAGITIS TECHNIQUE: Frontal view of the abdomen/pelvis with upright view of the abdomen. COMPARISON: No relevant prior studies available. FINDINGS: INTRAPERITONEAL SPACE: No free air. GASTROINTESTINAL TRACT: Fecal retention in the colon consistent with constipation. No dilation. ORGANS: Cholecystectomy clips. BONES/JOINTS: Unremarkable. No acute fracture. RAD/Abd Inc Decub and/or Erect IMPRESSION: Fecal retention in the colon consistent with constipation. Reading Location: [id number]
[2025-05-07 12:49] LABS: Hematocrit 43.0 % (37-47); Hemoglobin 14.6 g/dL (12.0-15.0); Immature Granulocytes Count 0.090 X10^3/uL (0.0-0.0); Mean Corp Hgb Conc 34.0 g/dL (32-36); Mean Corpuscular Volume 86.9 fL (81-99); Mean Platelet Vol. 9.3 fl (6.2-12.0); NRBC Flagged by Analyzer 0 % (0-5); Platelet Count 340 K/mm3 (150-450); RBC Distribution Width CV 12.3 % (11.6-14.6); RBC Distribution Width SD 39.1 fl (35.1-43.9); Red Blood Count 4.95 M/mm3 (4.2-5.4); White Blood Count 5.5 K/mm3 (4.4-11.0)
[2025-05-07 13:21] LABS: AST(SGOT) 16 U/L (<=31); Alanine Aminotransfer ALT/SGPT 20 U/L (<=34); Albumin, Serum 4.2 g/dL (3.4-4.8); Alkaline Phosphatase 61 U/L (35-104); Anion Gap 9 (5-15); BUN 13 mg/dL (4-19); BUN/Creat Ratio 21.5 RATIO (10-20); Calcium,Total 8.9 mg/dL (7.6-11.0); Carbon Dioxide 25.1 mmol/L (21.0-32.0); Chloride 106 mmol/L (98-108); Globulin 2.2 g/dL (2.2-4.2); Glucose 97 mg/dL (70-99); Potassium 4.3 mmol/L (3.3-5.1); Vitamin B12 1845 pg/mL (180-914); Vitamin D,25 Hydroxy 67.1 ng/mL (30-100)
== END | disposition home or self-care (01) ==
PROVIDERS: PCP Family Medicine; Referring Provider Family Medicine; Visit Provider Family Medicine
DX: R41.3 Other amnesia (principal); E03.9 Hypothyroidism, unspecified; K21.9 Gastro-esophageal reflux disease without esophagitis
CPT/HCPCS: 36415; 74019; 80053; 82306; 82607; 84443; 85025; 85652

== ENCOUNTER → 2025-07-01 | Outpatient (CLI) | payer OTHER, SELFPAY ==
--- NOTE | 2025-07-01 15:52 | BD_ITS ---
PROCEDURE: DEXA BONE DENSITY STUDY 07/01/2025 REASON FOR EXAM: F, age 65 y/o . Postmenopausal. TECHNIQUE: Procedure Code: BDDBD Modality: DX Procedure: DEXA BONE DENSITY STUDY COMPARISON: None FINDINGS: BMD and T-SCORES Lumbar spine: 1.068 g/cm2, T-score 0.2 Levels: Levels L1 through L4 Left femoral neck: 0.736 g/cm2, T-score -1.0 Left total hip: 0.922 g/cm2, T-score -0.2 Right femoral neck: 0.740 g/cm2, T-score -1.0 Right total hip: 0.918 g/cm2, T-score -0.2 The World Health Organization has defined the following categories based on bone density: Normal bone density: T-score equal to or greater than -1.0 Osteopenia: T-score between -1.0 and -2.5 Osteoporosis: T-score equal to or less than -2.5 FRAX (or Comparable) Fracture Risk Assessment: 10 Year Probability of Fracture: Major Osteoporotic Fracture: 13% Hip Fracture: 0.9% (Note: FRAX is not to be reported in setting of normal range bone density, osteoporosis on DEXA, known history of osteoporosis, prior osteoporotic hip or vertebral fracture, or for any patient undergoing pharmacological treatment for bone loss.) The National Osteoporosis Foundation (NOF) recommends pharmacological treatment for patients with a FRAX 10-year risk of 3% or higher for a hip fracture, or 20% or higher for a major osteoporotic fracture, to prevent osteoporosis and reduce fracture risk. The patient does not meet the pharmacological treatment recommendations for prevention of osteoporosis. BD/Dexa Bone Density Study IMPRESSION: OSTEOPENIA. Recommend follow-up as clinically warranted. Reading Location: [id number]
== END | disposition home or self-care (01) ==
LOC: OPBD 15:49
PROVIDERS: PCP Family Medicine; Referring Provider Family Medicine; Visit Provider Family Medicine
DX: Z13.820 Encounter for screening for osteoporosis (principal); Z78.0 Asymptomatic menopausal state
CPT/HCPCS: 77080

== ENCOUNTER → 2025-08-04 | Outpatient (CLI) | payer OTHER, SELFPAY ==
[2025-08-04 10:42] LABS: Hematocrit 46.1 % (37-47); Hemoglobin 15.1 g/dL (12.0-15.0); Immature Granulocytes Count 0.030 X10^3/uL (0.0-0.0); Mean Corp Hgb Conc 32.8 g/dL (32-36); Mean Corpuscular Volume 87.8 fL (81-99); Mean Platelet Vol. 8.9 fl (6.2-12.0); NRBC Flagged by Analyzer 0 % (0-5); Platelet Count 347 K/mm3 (150-450); RBC Distribution Width CV 12.1 % (11.6-14.6); RBC Distribution Width SD 39.0 fl (35.1-43.9); Red Blood Count 5.25 M/mm3 (4.2-5.4); White Blood Count 5.2 K/mm3 (4.4-11.0)
[2025-08-04 10:52] LABS: AST(SGOT) 18 U/L (<=31); Alanine Aminotransfer ALT/SGPT 21 U/L (<=34); Albumin, Serum 4.2 g/dL (3.4-4.8); Alkaline Phosphatase 66 U/L (35-104); Anion Gap 8 (7-18); BUN 14 mg/dL (4-19); BUN/Creat Ratio 19.2 RATIO (10-20); Calcium,Total 9.1 mg/dL (7.6-11.0); Carbon Dioxide 28.2 mmol/L (20.0-29.0); Chloride 106 mmol/L (96-106); Globulin 2.3 g/dL (2.2-4.2); Glucose 93 mg/dL (70-99); Potassium 4.3 mmol/L (3.5-5.1)
== END | disposition home or self-care (01) ==
LOC: MTLAB 09:31
PROVIDERS: PCP Family Medicine; Referring Provider Internal Medicine Rheumatology; Visit Provider Internal Medicine Rheumatology
DX: M06.4 Inflammatory polyarthropathy (principal); M79.7 Fibromyalgia; M35.00 Sjogren syndrome, unspecified; Z79.899 Other long term (current) drug therapy
CPT/HCPCS: 36415; 80053; 85025